=== PATIENT | female | born 1970 | race Two or more races ===

== ENCOUNTER 2024-04-21 19:05 | Emergency (ER) | payer MEDICAID, SELFPAY ==
[2024-04-21 19:20] VITALS: BMI 37.8
[2024-04-21 19:22] VITALS: BP 130/80; PULSE 73; RESP 19; TEMP 36.8; O2SAT 96
[2024-04-21 19:44] VITALS: PULSE 85; RESP 18; O2SAT 97
[2024-04-21 19:51] VITALS: BMI 37.8
--- NOTE | 2024-04-21 20:02 | EDNOTE_ITS ---
ED Seizures RME/HPI General Chief Complaint: Seizure Stated Complaint: SEIZURES Time Seen by Provider: 04/21/24 19:54 Arrival date/time: 04/21/24 19:05 RME / HPI RME / HPI Narrative: 54-year-old female patient with significant history of seizure disorder, currently taking Carbatrol, Vimpat, and Keppra was brought in by EMS for evaluation regarding seizure. Patient was in a dollar store, and developed sudden onset of tonic-clonic seizure, witnessed by her mom. Lasting for few seconds. Patient currently is alert and oriented x 3, denies any headache denies any neck pain denies any injury to the head. Patient is telling me that she is taking her seizure medication with good compliance. She also have VMS to control her seizure. Related Data Home Medications ?Medication ?Instructions ?Recorded ?Confirmed CARBATROL 200 mg PO BID ##0 11/21/08 1 lacosamide 200 mg tablet (Vimpat) 200 mg PO BID #0 tab s 11/27/16 01/02/22 levetiracetam 250 mg tablet 250 mg PO QID #0 tabs 11/0901/02/22 (Keppra) Previous Rx's ?Medication ?Instructions ?Recorded ibuprofen 800 mg tablet 800 mg PO TID PRN pain #30 t abs 07/05/23 Allergies Allergy/AdvReac Type Severity Reaction Status Date / Time NKA* Allergy Uncoded 01/07/22 16:36 Review of Systems Review of Systems Narrative Review of Systems: Review of system reviewed and within normal limits except mentioned in HPI ED Exam Narrative Physical exam: VITAL SIGNS: Reviewed. GENERAL APPEARANCE: Alert and interactive, follows commands, no acute distress, HEAD AND FACE: Non-traumatic. ENT: PERRL, pink conjunctivitis, eyelid no trauma, Mucous membrane moist. NECK: Supple, nontender, no nuchal rigidity. CHEST: No tenderness, no crepitus, no paradoxical movement, no retractions. LUNGS: Clear, well ventilated, symmetric, no rales, no wheezing, no ronchi, no stridor, good breath sounds bilaterally. HEART: Regular rate, regular rhythm, no murmur, no gallops. ABDOMEN: Soft, positive bowel sounds, nondistended, no guarding, nontender, no rebound, no masses, RECTAL: Deferred. GENITAL: Deferred. NEUROLOGICAL: Gross motor function intact sensory function intact, Appropriate for age. MUSCULOSKELETAL: low back nontender, full range of motion. EXTREMITIES: Nontender, full range of motion. SKIN: Color pink, dry, no rash, no lacerations, no abrasions, no contusions. LYMPHATICS: Deferred. Course Quality Measures none Orders Category Date Time Status CBC [CBC] Stat Lab 04/21/24 20:05 Completed CMP [Comprehensive Metabolic Panel] Stat Lab 04/21/24 20:05 Completed UA, C/S IF [Urinalysis, C/S if Indicated] Stat Lab 04/21/24 20:05 Completed levETIRAcetam INJ [Keppra Inj] Med 04/21/24 20:01 Discontinued 1,000 mg IVP X1 ONE Vital Signs Vital signs: Vital Signs Temperature 98.2 F 04/21/24 19:22 Pulse Rate 73 04/21/24 19:22 Respiratory Rate 19 04/21/24 19:22 Blood Pressure 130/80 04/21/24 19:22 Pulse Oximetry (%) 96 04/21/24 19:22 Oxygen Delivery Method Room Air 04/21/24 19:22 Seizure MDM Narrative MDM Narrative:: 54-year-old female patient with significant history of seizure disorder, currently taking Carbatrol, Vimpat, and Keppra was brought in by EMS for evalua tion regarding seizure. Patient was in a dollar store, and developed sudden onset of tonic-clonic seizure, witnessed by her mom. Lasting for few seconds. Patient currently is alert and oriented x 3, denies any headache denies any neck pain denies any injury to the head. Patient is telling me that she is taking her seizure medication with good compliance. She also have VMS to control her seizure. Patient's workup today all came back unremarkable. No recurrence of seizure noted in the emergency room. Patient received Keppra 1 g IV loading dose Patient appears nontoxic and hemodynamically stable. Patient discharged home and instructed to follow-up with primary care provider in 24 to 48 hours. Instructed to return to the emergency department immediately if worsening of symptoms Patient data External records reviewed:: None Clinical information provided by:: none Social determinants that could affect healthcare access:: none Patient has the following chronic illnesses:: History of seizure disorder How is presenting disease/condition affected by chronic disease/condition?: exacerbated by Evaluation data The following diagnostics were reviewed and interpreted by me:: lab results Lab and/or radiology exams considered but not ordered:: None Interpretation Summary: See result in [facility] Medications / Prescriptions Medications or Prescriptions considered but not ordered:: None Medication administrations:: Medication Administration History Discontinued Medications Levetiracetam (Levetiracetam Inj 100 Mg/Ml Vial 5ml) 1,000 mg IVP X1 ONE Stop: 04/21/24 20:02 Last Admin: 04/21/24 20:24 Dose: 1,000 mg Documented By: JAYME Valdez IV Consultations Consultation(s) initiated? (list below): No Diagnosis Seizure Differential Diagnosis: intractable seizure disorder, generalized seizure, new onset seizure, epileptic seizure and other Most likely diagnosis given after review of the tests above:: Breakthrough seizure Admission Indicated Admission indicated?: not indicated Explain why admission is indicated or not indicated:: Stable Admission Request Was there a request for admission?: No Disposition Plan Disposition Plan: Discharge Discharge Attestation Discharge Attestation: The patient and all family members were given an opportunity to ask questions and understood the discharge instructions. Discharge instructions specifically effects, indications for sooner follow up or return to the emergency department, and the expected course of current diagnosis. Patient condition: Stable Discharge Plan Plan Patient Disposition: HOME (Self Care) Disposition Comment: stable Prescriptions/Referrals Prescriptions/Med Rec: No Action CARBATROL 200 mg PO BID Qty: 0 levetiracetam [Keppra] 250 MG tablet 250 mg PO QID Qty: 0 lacosamide [Vimpat] 200 MG tablet 200 mg PO BID Qty: 0 ibuprofen 800 mg tablet 800 mg PO TID PRN (Reason: pain) Qty: 30 0RF Referrals: No Primary/Family,Physician [Primary Care Provider] - In 1 week Problem List Clinical Impression: Breakthrough seizure Patient/Caregiver Discharge Instructions Education Materials: ED Seizure, Recurrent (Adult) Additional Instructions: Thank you for the opportunity for serving you today. You are stable for discharged . You are advised to: Follow-up with your PCP in 1 to 2 days Return to ED for worsening of symptoms Increase oral fluids Take medication as prescribed by your PCP Print Language: Persian Stand Alone Forms: Marisela Award Info., Patient Portal Info Letter PA/PALMA Supervising Physician JOSE FRANCISCO/PALMA Supervising Physician: MD Ching
[2024-04-21] MEDS: levETIRAcetam INJ 100 MG/ML VIAL 5ML 1000 MG IVP (20:24)
[2024-04-21 20:37] LABS: Collection Type, Urine Clean Catch; RBC,Urine 0 /hpf (0-3); WBC,Urine 0 /hpf (0-5)
[2024-04-21 20:41] LABS: Basophils % (Auto) 0 % (0-2.5); Eosinophils # (Auto) 0.1 Thou/mm3 (0.0-0.5); Eosinophils % (Auto) 2 % (0-10); Hematocrit 40.7 % (36.0-46.0); Hemoglobin 13.9 g/dL (12.0-16.0); Immature Granulocytes % (Auto) 0 % (0-0); Immature Granulocytes Auto 0.02 Thou/mm3 (0.00-0.00); Lymphocytes # (Auto) 1.5 Thou/mm3 (1.0-4.8); Lymphocytes % (Auto) 33 % (10-50); Mean Corpuscular HGB Conc 34.2 g/dl (31.0-37.0); Mean Corpuscular Hemoglobin 31.2 pg (25.0-35.0); Mean Corpuscular Volume 91 fL (80-100); Monocytes # (Auto) 0.4 Thou/mm3 (0.0-0.8); Monocytes % (Auto) 10 % (0-12); Neutrophils # (Auto) 2.5 Thou/mm3 (1.8-7.7); Neutrophils % (Auto) 55 % (37-80); Nucleated Red Blood Cell % 0 /100 WBC (0); Platelet Count 214 Thou/mm3 (140-440); Red Blood Count 4.46 Miln/mm3 (4.00-5.20); White Blood Count 4.5 Thou/mm3 (3.6-11.0)
[2024-04-21 20:51] LABS: Bacteria,Urine Rare; Bilirubin,Urine Negative (Negative); Blood,Urine Negative (Negative); Clarity,Urine Clear (Clear/Hazy); Color,Urine Lt-Yellow (Lt Yel-Yel); Culture Indicated,Urine Not Indicated; Glucose, Urine Negative (Negative); Ketones,Urine Negative (Negative); Leukocyte Esterase,Urine Negative (Negative); Nitrite,Urine Negative (Negative); PH,Urine 7.5 (5.0-7.0); Protein,Urine Negative (Neg - Trace); Specific Gravity,Urine 1.017 (1.001-1.035); Squamous Epithelial Cell,Urine 1 /hpf (0-5); Urobilinogen,Urine Negative mg/dL (0.0-1.0)
[2024-04-21 21:03] LABS: Alanine Aminotransferase 12 U/L (10-49); Albumin, Serum 4.6 gm/dL (3.5-5.0); Albumin/Globulin Ratio 1.5 (1.2-2.2); Alkaline Phosphatase 117 U/L (46-116); Anion Gap 5 (7-16); Aspartate Amino Transferase 23 U/L (0-34); BUN/Creatinine Ratio 11 Ratio (12-20); Bilirubin,Total 0.2 mg/dL (0.3-1.2); Blood Urea Nitrogen 9 mg/dL (9-23); Calcium 9.3 mg/dL (8.3-10.6); Calcium (Corrected) 9.3 mg/dL (8.5-10.1); Carbon Dioxide 27.8 mMol/L (20.0-31.0); Chloride 109 mMol/L (98-107); Creatinine (Component) 0.8 mg/dL (0.6-1.3); Estimated Creatinine Clearance 94.5 mL/min (>60); Globulin 3.1 gm/dL (2.3-3.5); Glucose 72 mg/dL (74-106); Osmolality,Calculated 280 (275-295); Potassium 4.1 mMol/L (3.4-5.1); Sodium 142 mMol/L (136-145); Total Protein 7.7 gm/dL (5.7-8.2); eGFR > 60 See Note
[2024-04-21 21:46] VITALS: BP 113/82; PULSE 72; RESP 18; RESP 26; TEMP 36.6; O2SAT 95; O2SAT 97
[2024-04-21 22:00] VITALS: BP 111/80; RESP 16; O2SAT 95
== END 2024-04-21 22:27 | disposition home or self-care (01) ==
PROVIDERS: Nurse Practitioner Family; Emergency Provider Emergency Medicine
DX: R56.9 Unspecified convulsions (principal)
CPT/HCPCS: 36415; 80053; 81001; 85025; 96374; 99284; J1953

== ENCOUNTER → 2024-06-15 | Outpatient (CLI) | payer MEDICAID, SELFPAY ==
--- NOTE | 2024-06-15 13:15 | XR_ITS ---
Examination: Screening digital mammography, bilateral Computer aided detection 3-D breast Tomosynthesis, bilateral Date and time of exam: 06/15/2024, 1:19 PM Comparisons: December 2017 through February 26 through Indications: Screening Technique: Nonmagnified MLO, CC views of the breasts to been obtained, reconstructed from 3-D Tomosynthesis images. R2 computer aided detection program utilized for evaluation of suspicious masses and/or abnormal calcifications. 3-D Tomosynthesis images obtained. Technologist: Findings: There are scattered areas of fibroglandular density. No evidence of abnormal masses or suspicious calcifications. Impression: BI-RADS category 1: Negative findings (within normal) Recommend 1 year follow-up mammogram
[2024-06-15 14:12] LABS: Basophils % (Auto) 0 % (0-2.5); Eosinophils % (Auto) 0 % (0-10); Hematocrit 38.7 % (36.0-46.0); Hemoglobin 13.2 g/dL (12.0-16.0); Immature Granulocytes % (Auto) 0 % (0-0); Immature Granulocytes Auto 0.03 Thou/mm3 (0.00-0.00); Lymphocytes # (Auto) 1.2 Thou/mm3 (1.0-4.8); Lymphocytes % (Auto) 13 % (10-50); Mean Corpuscular HGB Conc 34.1 g/dl (31.0-37.0); Mean Corpuscular Hemoglobin 31.4 pg (25.0-35.0); Mean Corpuscular Volume 92 fL (80-100); Monocytes # (Auto) 0.8 Thou/mm3 (0.0-0.8); Monocytes % (Auto) 9 % (0-12); Neutrophils # (Auto) 7.1 Thou/mm3 (1.8-7.7); Neutrophils % (Auto) 78 % (37-80); Nucleated Red Blood Cell % 0 /100 WBC (0); Platelet Count 226 Thou/mm3 (140-440); RDW Standard Deviation 41.6 fL (36.4-46.3); White Blood Count 9.1 Thou/mm3 (3.6-11.0)
[2024-06-15 14:23] LABS: Glucose Estimated Average 100 mg/dL (80-131); Hemoglobin A1C 5.1 % Hgb (4.8-6.0)
[2024-06-15 14:32] LABS: Alanine Aminotransferase 11 U/L (10-49); Albumin, Serum 4.4 gm/dL (3.5-5.0); Albumin/Globulin Ratio 1.3 (1.2-2.2); Alkaline Phosphatase 110 U/L (46-116); Anion Gap 4 (7-16); Aspartate Amino Transferase 15 U/L (0-34); BUN/Creatinine Ratio 13 Ratio (12-20); Bilirubin,Total 0.5 mg/dL (0.3-1.2); Blood Urea Nitrogen 9 mg/dL (9-23); Calcium 9.2 mg/dL (8.3-10.6); Calcium (Corrected) 9.2 mg/dL (8.5-10.1); Carbon Dioxide 29.8 mMol/L (20.0-31.0); Cardiac Risk Estimate 2.3 RATIO (3.7-5.6); Chloride 101 mMol/L (98-107); Cholesterol 183 mg/dL (132-200); Creatinine (Component) 0.7 mg/dL (0.6-1.3); Globulin 3.4 gm/dL (2.3-3.5); Glucose 93 mg/dL (74-106); HDL Cholesterol 80 mg/dL (40-60); LDL Cholesterol,Calculated 92 mg/dL (0-130); Osmolality,Calculated 268 (275-295); Potassium 4.4 mMol/L (3.4-5.1); Sodium 135 mMol/L (136-145); Thyroid Stimulating Hormone 0.71 uIU/mL (0.55-4.78); Total Protein 7.8 gm/dL (5.7-8.2); Triglycerides 57 mg/dL (30-150); eGFR > 60 See Note
[2024-06-15 15:06] LABS: Hepatitis C Ab (Source Pt) Non Reactive (Non React); Vitamin D 25 Hydroxy Total 12.4 ng/mL (7.3-40.2)
[2024-06-18 19:47] LABS: Hepatitis B Virus DNA* NOT DETECTED
[2024-06-21 06:40] LABS: HIV Ag/Ab, 4th Gen NON-REACTIVE; Hepatitis B DNA PCR NOT DETECTED Log IU/mL
== END | disposition home or self-care (01) ==
LOC: CDIM 13:05 → COPL 13:22
PROVIDERS: PCP Physician Assistant; Referring Provider Physician Assistant; Visit Provider Radiology Diagnostic Radiology
DX: Z12.31 Encounter for screening mammogram for malignant neoplasm of breast (principal); R92.8 Other abnormal and inconclusive findings on diagnostic imaging of breast; R92.313 Mammographic fatty tissue density, bilateral breasts; Z00.00 Encounter for general adult medical examination without abnormal findings; E66.9 Obesity, unspecified; I10 Essential (primary) hypertension; E11.59 Type 2 diabetes mellitus with other circulatory complications
CPT/HCPCS: 36415; 77063; 77067; 80053; 80061; 82306; 83036; 84443; 85025; 87389; 87517

== ENCOUNTER → 2024-10-11 | Outpatient (CLI) | payer MEDICAID, SELFPAY ==
--- NOTE | 2024-10-11 | XR_ITS ---
Examination: PA lateral chest 2 views TECHNIQUE: Upright PA lateral chest 2 views Date and time: October 11, 2024 1321 hours Comparison May 31, 2022 INDICATIONS: Congestion shortness of breath one month FINDINGS: Normal heart size. Lungs are clear. Transmitter wires overlie the left hemithorax and left neck Moderate osteopenia IMPRESSION: No active disease
== END | disposition home or self-care (01) ==
PROVIDERS: PCP Physician Assistant; Referring Provider Internal Medicine Critical Care Medicine; Visit Provider Internal Medicine Critical Care Medicine
DX: R09.89 Other specified symptoms and signs involving the circulatory and respiratory systems (principal); R06.02 Shortness of breath; G47.30 Sleep apnea, unspecified; G40.909 Epilepsy, unspecified, not intractable, without status epilepticus; E66.01 Morbid (severe) obesity due to excess calories; Z80.2 Family history of malignant neoplasm of other respiratory and intrathoracic organs
CPT/HCPCS: 71046

== ENCOUNTER 2024-11-15 14:16 | Emergency (ER) | payer MEDICAID, SELFPAY ==
--- NOTE | 2024-11-15 14:24 | EKG_ITS ---
[facility] Test Date: 2024-11-15 Pat Name: CALLY SANCHEZ Department: Room: - Gender: Female Alteration Specialist: : 1970 Requested By: Estrellita Vizcarra Order Number: [id number] Reading MD: Estrellita Vizcarra Measurements Intervals [place] Rate: 88 P: 48 [place]: 151 QRS: 16 QRSD: 102 T: 48 QT: 350 QTc: 424 Interpretive Statements SINUS RHYTHM No previous ECG available for comparison /store/S0/[id number]/ecg/[id number].pdf
--- NOTE | 2024-11-15 14:25 | XR_ITS ---
Examination: AP chest single view Technique one AP portable upright chest single view Date and time: November 15, 2024 1434 hours INDICATIONS: Seizure today. FINDINGS: No aspiration pneumonia. Normal heart size Poor inspiratory effort IMPRESSION: Poor inspiratory effort chest x-ray
--- NOTE | 2024-11-15 14:29 | XR_ITS ---
Examination: CT brain head without contrast. 2-D sagittal coronal reconstructions Date and time of exam:November 15, 2024 1455 hours INDICATIONS: Seizures today, patient fell with injury to the head CTDI: vol (mGy):54 DLP: (mGycm):1070 Technique: Multiple CT axial sections of the brain have been obtained, 5 mm slice thickness. Contrast has not been administered. 2-D sagittal, coronal reconstructions have been obtained Low dose protocols were performed. One or more of the following dose reduction techniques were used; automated exposure control, adjustment of the mA and/or KV according to patient size, use of iterative reconstruction technique. Findings: No significant ventricular enlargement. Intra-axial or extra-axial hemorrhage density is not seen. No mass effect or midline shift Basal cisterns are not remarkable. Fourth ventricle is midline. Cranial vault intact. Impression: Negative for acute hemorrhage, mass effect or midline shift
[2024-11-15] MEDS: levETIRAcetam INJ 100 MG/ML VIAL 5ML 1000 MG IVP (14:32)
[2024-11-15 14:36] VITALS: BP 177/105; PULSE 76; PULSE 92; RESP 22; TEMP 37.3; O2SAT 95; O2SAT 96; BMI 39.8
[2024-11-15 14:49] LABS: Base Excess, Venous -3 (-3-3); O2 Saturation, Venous 65 % (96-97); PCO2, Venous 56 mmHg (36-56); PO2, Venous 38 mmHg (15-58); pH, Venous 7.26 (7.33-7.66)
--- NOTE | 2024-11-15 14:49 | XR_ITS ---
Examination: CT cervical spine without contrast 2-D sagittal reconstructions 2-D coronal reconstructions 3-D reconstructions. Exam date and time:November 15, 2024 1455 hours, comparison July 05, 2023 CTDI:vol (mGy) 19.8 DLP: (mGycm) 376 INDICATIONS: Seizure today, patient fell with injury to the neck, neck pain Technique: Multiple 2 mm axial sections of the cervical spine have been obtained. The coronal and sagittal reconstructions have been obtained. 3-D reconstructions have been obtained. Low dose protocols were performed. One or more of the following dose reduction techniques were used; automated exposure control, adjustment of the mA and/or KV according to patient size, use of iterative reconstruction technique. Findings: Axial sections demonstrate intact base of the skull. C1 exhibit satisfactory relationship to the odontoid. No acute cervical vertebral body fracture seen. Alignment posterior spinous processes satisfactory. Impression: No acute cervical fracture.
[2024-11-15 14:51] LABS: Basophils # (Auto) 0.0 Thou/mm3 (0.0-0.2); Basophils % (Auto) 0 % (0-2.5); Eosinophils # (Auto) 0.0 Thou/mm3 (0.0-0.5); Eosinophils % (Auto) 1 % (0-10); Hematocrit 43.8 % (36.0-46.0); Hemoglobin 14.7 g/dL (12.0-16.0); Immature Granulocytes Auto 0.07 Thou/mm3 (0.00-0.00); Lymphocytes # (Auto) 2.9 Thou/mm3 (1.0-4.8); Lymphocytes % (Auto) 42 % (10-50); Mean Corpuscular HGB Conc 33.6 g/dl (31.0-37.0); Mean Corpuscular Hemoglobin 31.4 pg (25.0-35.0); Mean Corpuscular Volume 94 fL (80-100); Monocytes # (Auto) 0.7 Thou/mm3 (0.0-0.8); Monocytes % (Auto) 11 % (0-12); Neutrophils # (Auto) 3.1 Thou/mm3 (1.8-7.7); Neutrophils % (Auto) 45 % (37-80); Nucleated Red Blood Cell # 0.00 Thou/mm3 (0.00-0.00); Nucleated Red Blood Cell % 0 /100 WBC (0); Platelet Count 198 Thou/mm3 (140-440); RDW Standard Deviation 43.0 fL (36.4-46.3); Red Blood Count 4.68 Miln/mm3 (4.00-5.20); White Blood Count 6.9 Thou/mm3 (3.6-11.0)
[2024-11-15 14:59] LABS: Lactate (Lactic Acid) 5.7 mMol/L (0.4-2.0)
--- NOTE | 2024-11-15 15:06 | PD.EDSEIZ ---
ED Seizures RME/HPI General Chief Complaint: Seizure Stated Complaint: SEIZURE Time Seen by Provider: 11/15/24 14:20 Arrival date/time: 11/15/24 14:16 Mode of arrival: EMS RME / HPI RME / HPI Narrative: Ms Powell is a 54 year old female with PMH of seizures follows Dr. Drake on Keppra, lacosamide and carbamazepine ER who presented to [facility] emergency department on 11/15/2024 with a chief complaint of seizure episode. Patient missed last step preseizure aura fell down and hit her head and had a seizure episode witnessed by family. Patient during transport by EMS required 4 L nasal cannula oxygen otherwise no medications given en route to the ED. Patient also has a vagal nerve stimulator for management of seizures, she reports that she needs to get the battery replaced on the VNS and is following with a surgeon in [place]. Patient complains of headache currently 10/10 is postictal, did have an episode of postictal confusion in the ED. Patient denies any medical problems, follows PCP. Currently denies any oral trauma, nausea, vomiting chest pain, shortness of breath, abdominal pain and dysuria. Patient does report that she took her medications this morning. MD complaint: seizure Onset (ago): hour(s) Description of Episode: loss of consciousness, tonic-clonic movement and post-event confusion Witnessed: yes - by bystander (family) Trauma: Yes Seizure History: known seizure disorder Place: home Possible Precipitating Event: other (Suspicion of VNS malfunction) Associated symptoms: confusion and other (headache) Treatments prior to arrival: none Related Data Home Medications ?Medication ?Instructions ?Recorded ?Confirmed levetiracetam 500 mg tablet 1,250 mg PO Q12H 11/15/24 11/15/24 Previous Rx's ?Medication ?Instructions ?Recorded carbamazepine 300 mg 300 mg PO TID 30 days #90 caps 11/15/24 capsule,extended release [id number] lacosamide 150 mg tablet 150 mg PO BID Seizures 30 days #60 11/15/24 tabs Allergies Allergy/AdvReac Type Severity Reaction Status Date / Time No Known Allergies Allergy Unverified 11/15/24 14:54 Review of Systems Review of Systems Narrative Review of Systems: ROS: -CONSTITUTIONAL: Denies weight loss, fever and chills. -HEENT: Denies changes in vision and hearing. -RESPIRATORY: Denies SOB and cough. -CV: Denies palpitations and Chest Pain. -GI: Denies abdominal pain, nausea, vomiting,constipation and diarrhea. -: Denies dysuria and urinary frequency. -MSK: Denies myalgia and joint pain. -SKIN: Denies rash and pruritus. -NEUROLOGICAL: Positive for headache and denies syncope. -PSYCHIATRIC: Denies recent changes in mood. Denies anxiety and depression. Past Medical History Past Medical History Comments PMH COMMENT: PMH: Positive for seizure disorder, renal stones PSHx: Surgery for renal calculi, VNS insertion Allergies: No known allergies Social history: -Smoking: Denies -Alcohol Use: Denies -Illicit Drug Use: Denies Family History: No pertinent family history ED Exam Narrative Physical exam: Physical Exam General: Awake and in no acute distress. Conversational and non-toxic appearing. HEENT: Normocephalic, atraumatic, mucous membranes moist. Heart: Regular rate and rhythm, no murmurs. Lungs: Clear to auscultation with no wheezing or crackles. Abdomen: Soft, obese, nondistended, nontender, positive bowel sounds. ?No guarding or rebound tenderness. Neurologic: Alert and oriented x3, no gross neurological deficit, and patient able to move all 4 extremities. Extremities: No edema. Skin: No rash or ecchymoses. Course Quality Measures none Orders Category Date Time Status Blood glucose [Bedside Blood Glucose] NOW Care 11/15/24 14:28 Completed Director Of Instruction Q4H START 00 Care 11/15/24 14:28 Completed Continuous Pulse Oximetry NOW Care 11/15/24 14:28 Completed EKG (ED ONLY) *Do not use* NOW Care 11/15/24 14:25 Completed In and Out Catheter X1 Care 11/15/24 15:44 Completed Seizure precautions NOW Care 11/15/24 14:[address] cervical spine wo con Stat Exams 11/15/24 14:[address] head/brain wo con Stat Exams 11/15/24 14:29 Completed CXRP [XR chest 1V portable] Stat Exams 11/15/24 14:25 Completed EKG (ED Only) Stat Exams 11/15/24 14:24 Draft Alcohol, Blood Medical Stat Lab 11/15/24 14:44 Completed CBC Stat Lab 11/15/24 14:44 Completed CK [Creatine Kinase] Stat Lab 11/15/24 14:44 Completed CMP [Comprehensive Metabolic Panel] Stat Lab 11/15/24 14:44 Completed Drug Screen,Urine Stat Lab 11/15/24 16:16 Completed HCG Qualitative,Urine Stat Lab 11/15/24 16:16 Completed INR [Prothrombin Time with INR] Stat Lab 11/15/24 14:44 Completed Lactate (Lactic Acid) Stat Lab 11/15/24 14:44 Completed Magnesium Stat Lab 11/15/24 14:44 Completed PTT [Partial Thromboplastin Time] Stat Lab 11/15/24 14:44 Completed Phosphorous Stat Lab 11/15/24 14:44 Completed Procalcitonin Stat Lab 11/15/24 14:44 Completed Urinalysis Stat Lab 11/15/24 16:16 Completed VBG [Venous Blood Gas] Stat Lab 11/15/24 14:44 Completed Acetaminophen Tab [Tylenol ES Tab] Med 11/15/24 14:51 Discontinued 500 mg PO X1 ONE Ringers Lactated 1000 ml [Lactated Ringers] 1,000 ml Med 11/15/24 15:17 Discontinued IV 999 mls/hr Sodium Chloride 0.9% 500 ml [Ns] 500 ml Med 11/15/24 14:51 Discontinued IV 999 mls/hr carBAMazepine [TEGretol Xr] Med 11/15/24 15:15 Discontinued 300 mg PO Q8HR levETIRAcetam INJ [Keppra Inj] Med 11/15/24 14:26 Discontinued 1,000 mg IVP X1 ONE levETIRAcetam INJ [Keppra Inj] Med 11/15/24 14:58 Discontinued 500 mg IVP X1 ONE Vital Signs Vital signs: Vital Signs Temperature 99.1 F 11/15/24 14:36 Pulse Rate 92 11/15/24 14:36 Respiratory Rate 22 H 11/15/24 14:36 Blood Pressure 177/105 H 11/15/24 14:36 Pulse Oximetry (%) 95 11/15/24 14:36 Oxygen Delivery Method Room Air 11/15/24 14:36 PROCEDURES: Laceration Laceration 1: Site: scalp Description: linear and irregular Depth: simple, single layer Skin layer closed with: other (neil) Number of sutures: 6 Seizure MDM Narrative MDM Narrative:: #Seizure Episode #H/O Seizures #S/P Fall #Scalp Laceration s/p 6 neil Patient presented with Seizure episode, s/p fall Given Keppra 1500 mg IV and home dose of carbamazepine. Lactate 5.7 2/2 seizure, given [address] Head and Cervical Spine negative Discussed with Dr Lewis patient's neurologist over the phone will be discharged on Keppra 1250mg Q12H, Carbamazepine ER 300 TID and Lacosamide dose will be increased to 150mg BID. Patient to follow up with Dr Drake in 1 week for VNS assessment Follow up in 1 week to remove neil Case discussed with Attending Physician Dr. Denton Vizcarra MD Internal Medicine PGY-2 Disclaimer: This note was dictated by speech recognition. Minor errors in art class model may be present due to voice recognition software. Patient data External records reviewed:: [facility] previous records and EMS form Clinical information provided by:: patient and EMS Social determinants that could affect healthcare access:: none Patient has the following chronic illnesses:: Seizure disorder How is presenting disease/condition affected by chronic disease/condition?: exacerbated by Evaluation data The following diagnostics were reviewed and interpreted by me:: lab results, radiology exam(s) and EKG tracing(s) Lab and/or radiology exams considered but not ordered:: None Interpretation Summary: EKG shows sinus rhythm, no acute ST-T changes Chest x-ray negative for any aspiration pneumonia, CT scan of the head negative for any acute hemorrhage mass effect or midline shift, CT cervical spine negative for any acute cervical fracture VBG pertinent for pH 7.26, lactate elevated at 5.7 Medications / Prescriptions Medications or Prescriptions considered but not ordered:: Not applicable Medication administrations:: Medication Administration History Discontinued Medications Acetaminophen (Acetaminophen 500 Mg Tablet) 500 mg PO X1 ONE Stop: 11/15/24 14:52 Last Admin: 11/15/24 15:24 Dose: 500 mg Documented By: EF Carbamazepine (Carbamazepine 200 Mg Tabcr (Non-Formulary)) 300 mg PO Q8HR CECE Stop: 12/15/24 15:14 Last Admin: 11/15/24 16:33 Dose: 300 mg Documented By: EF Sodium Chloride (Ns) 500 mls @ 999 mls/hr IV .Q31M ONE Stop: 11/15/24 15:21 Last Admin: 11/15/24 16:06 Dose: Not Given Documented By: EF Non-Admin Reason: Cancelled by Provider Lactated Ringer's (Lactated Ringers) 1,000 mls @ 999 mls/hr IV .Q1H1M ONE Stop: 11/15/24 16:17 Last Infusion: 11/15/24 16:28 Dose: Infused Documented By: Admin: 11/15/24 15:27 Dose: 999 mls/hr Documented By: EF Levetiracetam (Levetiracetam Inj 100 Mg/Ml Vial 5ml) 1,000 mg IVP X1 ONE Stop: 11/15/24 14:27 Last Admin: 11/15/24 14:32 Dose: 1,000 mg Documented By: EF Levetiracetam (Levetiracetam Inj 100 Mg/Ml Vial 5ml) 500 mg IVP X1 ONE Stop: 11/15/24 14:59 Last Admin: 11/15/24 15:24 Dose: 500 mg Documented By: EF As above Consultations Consultation(s) initiated? (list below): Yes Consultation #1 (Physician, Specialty, Details): Dr Drake, Neurology, Phone Consult, recs discharge on Keppra 1250mg Q12H, Carbamazepine ER 300 TID and Lacosamide dose will be increasing to 150mg BID. Diagnosis Seizure Differential Diagnosis: generalized seizure Most likely diagnosis given after review of the tests above:: Seizure episode Admission Indicated Admission indicated?: not indicated Admission Request Was there a request for admission?: No Disposition Plan Disposition Plan: Discharge Discharge Attestation Discharge Attestation: The patient and all family members were given an opportunity to ask questions and understood the discharge instructions. Discharge instructions specifically effects, indications for sooner follow up or return to the emergency department, and the expected course of current diagnosis. Patient condition: Stable Discharge Plan Plan Patient Disposition: HOME (Self Care) Patient condition on transfer: Stable Health Concerns: We have increased your lacosamide dose after discussing with your neurologist to 150mg twice a day, 12 hours apart, first dose at 8 AM second dose at 8 PM Take Keppra 1250mg (2.5 tablets) 12 hours apart, first dose at 8 AM second dose at 8 PM Take Carbamazepine 300 mg three times a day first dose 6 AM, second dose 2 PM and third dose at 10 PM Follow up with neurologist outpatient for the VNS issues We placed 6 neil in your scalp because of the laceration, please follow up with PCP in 1 week to get them removed. Follow up with PCP in 1 week Return to ED if symptoms worsen Prescriptions/Referrals Prescriptions/Med Rec: New lacosamide 150 mg tablet 150 mg PO BID 30 Days Qty: 60 0RF Continued levetiracetam 500 mg tablet 1,250 mg PO Q12H Patient Comments: TAKE 2.5 TABLETS BY MOUTH 2 TIMES A DAY Changed carbamazepine 300 mg capsule, ER multiphase 12 hr 300 mg PO TID 30 Days Qty: 90 0RF Patient Comments: TAKE 1 CAPSULE BY MOUTH EVERY 8 HOURS FOR SEIZURES Discontinued CARBATROL 200 mg PO BID Qty: 0 levetiracetam [Keppra] 250 MG tablet 250 mg PO QID Qty: 0 lacosamide [Vimpat] 200 MG tablet 200 mg PO BID Qty: 0 ibuprofen 800 mg tablet 800 mg PO TID PRN (Reason: pain) Qty: 30 0RF lacosamide 100 mg tablet 100 mg PO Q12H Patient Comments: TAKE 1 TABLET BY MOUTH TWICE A DAY Referrals: Niles Drake MD [Physician, Neurology] - In 1 week Monica Santana PA-C [Primary Care Provider, Family Practice] - In 1 week Problem List Clinical Impression: Generalized seizure Patient/Caregiver Discharge Instructions Discharge Activity: activity as tolerated Education Materials: ED Seizure, Recurrent (Adult) Print Language: Syriac Stand Alone Forms: Marisela Award Info., Patient Portal Info Letter MD Attestation Attestation I, Dr. Chawla, have reviewed the history, exam, and assessment of the patient. I have evaluated the patient independently and agree with the plan of care documented by Dr. Vizcarra. All diagnostic studies were reviewed and discussed. I confirm the diagnosis as documented by the Resident. I was present during the Medical Decision Making for this patient. The patient's plan of care was created between myself and the Resident and consistent with our discussion of the patient's case.
[2024-11-15] MEDS: ACETAMINOPHEN 500 MG TABLET PO (15:24)
[2024-11-15] MEDS: levETIRAcetam INJ 100 MG/ML VIAL 5ML 500 MG IVP (15:24)
[2024-11-15] MEDS: RINGERS LACTATED 1000 ML 1,000 ML 999 ML IV (15:27)
[2024-11-15 15:31] LABS: Alanine Aminotransferase 13 U/L (10-49); Albumin, Serum 4.6 gm/dL (3.5-5.0); Albumin/Globulin Ratio 1.4 (1.2-2.2); Alcohol, Blood Medical < 3.0 mg/dL (0-10.0); Alkaline Phosphatase 106 U/L (46-116); Anion Gap 14 (7-16); Aspartate Amino Transferase 24 U/L (0-34); BUN/Creatinine Ratio 15 Ratio (12-20); Bilirubin,Total 0.3 mg/dL (0.3-1.2); Blood Urea Nitrogen 12 mg/dL (9-23); Calcium 9.5 mg/dL (8.3-10.6); Calcium (Corrected) 9.5 mg/dL (8.5-10.1); Carbon Dioxide 23.8 mMol/L (20.0-31.0); Chloride 104 mMol/L (98-107); Creatine Kinase 98 U/L (34-171); Creatinine (Component) 0.8 mg/dL (0.6-1.3); Estimated Creatinine Clearance 97.3 mL/min (>60); Globulin 3.3 gm/dL (2.3-3.5); Glucose 100 mg/dL (74-106); Magnesium 2.2 mg/dL (1.6-2.6); Osmolality,Calculated 282 (275-295); Phosphorous 3.3 mg/dL (2.4-5.1); Potassium 3.6 mMol/L (3.4-5.1); Procalcitonin < 0.04 ng/ml (0.0-0.49); Sodium 142 mMol/L (136-145); Total Protein 7.9 gm/dL (5.7-8.2); eGFR > 60 See Note
[2024-11-15 15:37] LABS: INR 1.0 (0.9-1.3); Partial Thromboplastin Time 25.4 Seconds (22.0-36.0); Prothrombin Time 10.6 Seconds (9.0-12.2)
[2024-11-15 16:17] VITALS: BP 138/92; PULSE 63; RESP 18; TEMP 36.6; O2SAT 95
[2024-11-15] MEDS: CARBAMAZEPINE 200 MG 300 MG PO (16:33)
[2024-11-15 16:45] LABS: Collection Type, Urine Clean Catch
[2024-11-15 17:06] LABS: Bilirubin,Urine Negative (Negative); Blood,Urine 2+ (Negative); Color,Urine Lt-Yellow (Lt Yel-Yel); Glucose, Urine Negative (Negative); Ketones,Urine Negative (Negative); Leukocyte Esterase,Urine Negative (Negative); Nitrite,Urine Negative (Negative); PH,Urine 7.0 (5.0-7.0); Protein,Urine Trace (Neg - Trace); RBC,Urine 119 /hpf (0-3); Specific Gravity,Urine 1.020 (1.001-1.035); Squamous Epithelial Cell,Urine 1 /hpf (0-5); Urobilinogen,Urine Negative mg/dL (0.0-1.0); WBC,Urine 1 /hpf (0-5)
[2024-11-15 17:12] LABS: Clarity,Urine Hazy (Clear/Hazy)
[2024-11-15 17:31] LABS: HCG Qualitative,Urine Negative
[2024-11-15 17:44] LABS: Amphetamine/Methamp Scrn,U Negative (Negative); Barbiturate Screen,Urine Negative (Negative); Benzodiazepines Screen,Urine Negative (Negative); Benzoylecgonine Screen, Ur Negative (Negative); Fentanyl Screen,Urine Negative (Negative); Opiate Screen,Urine Negative (Negative); THC Screen,Urine Negative (Negative)
[2024-11-15 17:49] LABS: Reflex Lactate? Y
== END 2024-11-15 17:12 | disposition home or self-care (01) ==
PROVIDERS: Emergency Provider Emergency Medicine; PCP Physician Assistant
DX: S01.01XA Laceration without foreign body of scalp, initial encounter (principal); R56.9 Unspecified convulsions; S19.9XXA Unspecified injury of neck, initial encounter; W19.XXXA Unspecified fall, initial encounter
CPT/HCPCS: 12001; 36415; 70450; 71045; 72125; 80053; 80307; 80320; 81001; 81025; 82550; 82803; 83605; 83735; 84100; 84145; 85025; 85610; 85730; 93005; 96361; 96374; 96376; 99284; J1953; J7120; A9270; G0480

== ENCOUNTER → 2024-12-14 | Outpatient (CLI) | payer MEDICAID, SELFPAY ==
--- NOTE | 2024-12-14 09:55 | XR_ITS ---
EXAMINATION: PA lateral chest 2 views TECHNIQUE: Upright PA lateral chest 2 views Date and time: December 14, 2024, 1019 hours INDICATIONS: Difficulty breathing 1 month. FINDINGS: Normal heart size Lungs are clear. Pulse generator over the left chest Mild osteopenia IMPRESSION: No active disease
== END | disposition home or self-care (01) ==
PROVIDERS: PCP Physician Assistant; Referring Provider Nurse Practitioner; Visit Provider Nurse Practitioner
DX: G47.30 Sleep apnea, unspecified (principal); Z80.2 Family history of malignant neoplasm of other respiratory and intrathoracic organs
CPT/HCPCS: 71046

== ENCOUNTER 2025-01-11 16:43 | Inpatient (IN) | payer MEDICAID, SELFPAY ==
[2025-01-11 16:49] VITALS: PULSE 84; O2SAT 94; BMI 43.6
--- NOTE | 2025-01-11 16:50 | XR_ITS ---
CLINICAL INDICATION: r/o aspiration pneumonia Exam date and time: 01/11/2025, 4:58 p.m. TECHNIQUE: XR chest 1V portable COMPARISON: Chest radiographs 12/14/2024 FINDINGS: The cardiomediastinal silhouette is within normal limits. No airspace opacities suggestive of pneumonia. No mass detected. No pleural effusion or pneumothorax. No acute osseous abnormality detected. Redemonstration of thoracic dextroscoliosis, as well as a vagal nerve stimulator on the left. IMPRESSION: No radiographic evidence for acute cardiopulmonary abnormality. No significant interval change since the comparison study. - This report was generated utilizing speech recognition software. -
--- NOTE | 2025-01-11 16:51 | EKG_ITS ---
[facility] Test Date: 2025-01-11 Pat Name: CALLY SANCHEZ Department: Room: - Gender: Female Service Engineer: : 1970 Requested By: Leilani Solomon Order Number: [id number] Reading MD: Leilani Solomon Measurements Intervals [place] Rate: 75 P: 32 W[place]: 150 QRS: 12 QRSD: 85 T: 25 QT: 351 QTc: 393 Interpretive Statements SINUS RHYTHM Compared to ECG 11/15/2024 14:30:33 No significant changes /store/S0/[id number].pdf
[2025-01-11 16:54] VITALS: PULSE 66
[2025-01-11 17:00] VITALS: BP 134/86; PULSE 76; RESP 18; TEMP 36.4; O2SAT 98
--- NOTE | 2025-01-11 17:14 | XR_ITS ---
Examination: CT brain head without contrast. 2-D sagittal coronal reconstructions Date and time of exam: January 11, 2025, 1812 hours INDICATIONS: Seizures today CTDI: vol (mGy): 51.4 DLP: (mGycm): 1108 Technique: Multiple CT axial sections of the brain have been obtained, 5 mm slice thickness. Contrast has not been administered. 2-D sagittal, coronal reconstructions have been obtained Low dose protocols were performed. One or more of the following dose reduction techniques were used; automated exposure control, adjustment of the mA and/or KV according to patient size, use of iterative reconstruction technique. Findings: No significant ventricular enlargement. Intra-axial or extra-axial hemorrhage density is not seen. No mass effect or midline shift Basal cisterns are not remarkable. Fourth ventricle is midline. Cranial vault intact. Impression: Negative for acute hemorrhage, mass effect or midline shift
[2025-01-11 17:36] LABS: Base Excess, Venous -1 (-3-3); O2 Saturation, Venous 96 % (96-97); PCO2, Venous 47 mmHg (36-56); PO2, Venous 85 mmHg (15-58); pH, Venous 7.34 (7.33-7.66)
[2025-01-11 17:37] LABS: Lactate (Lactic Acid) 2.8 mMol/L (0.4-2.0)
[2025-01-11 17:39] LABS: Basophils # (Auto) 0.0 Thou/mm3 (0.0-0.2); Basophils % (Auto) 1 % (0-2.5); Eosinophils # (Auto) 0.0 Thou/mm3 (0.0-0.5); Eosinophils % (Auto) 0 % (0-10); Hematocrit 41.0 % (36.0-46.0); Hemoglobin 14.1 g/dL (12.0-16.0); Immature Granulocytes Auto 0.03 Thou/mm3 (0.00-0.00); Lymphocytes # (Auto) 1.8 Thou/mm3 (1.0-4.8); Lymphocytes % (Auto) 23 % (10-50); Mean Corpuscular HGB Conc 34.4 g/dl (31.0-37.0); Mean Corpuscular Hemoglobin 31.8 pg (25.0-35.0); Mean Corpuscular Volume 93 fL (80-100); Monocytes # (Auto) 0.5 Thou/mm3 (0.0-0.8); Monocytes % (Auto) 7 % (0-12); Neutrophils # (Auto) 5.4 Thou/mm3 (1.8-7.7); Neutrophils % (Auto) 70 % (37-80); Nucleated Red Blood Cell # 0.00 Thou/mm3 (0.00-0.00); Nucleated Red Blood Cell % 0 /100 WBC (0); Platelet Count 210 Thou/mm3 (140-440); RDW Standard Deviation 42.6 fL (36.4-46.3); Red Blood Count 4.43 Miln/mm3 (4.00-5.20); White Blood Count 7.8 Thou/mm3 (3.6-11.0)
[2025-01-11] MEDS: levETIRAcetam INJ 100 MG/ML VIAL 5ML 1000 MG IVP (17:40)
--- NOTE | 2025-01-11 17:48 | EDNOTE_ITS ---
<Statement entered by Valerie Britton MD - 01/12/25 09:34> As co-signing physician, I was present and available for consult prn. I concur with the plan and care as documented by the midlevel provider. ED Seizures RME/HPI General Chief Complaint: Seizure Stated Complaint: SEIZURES Time Seen by Provider: 01/11/25 16:47 Arrival date/time: 01/11/25 16:43 RME / HPI RME / HPI Narrative: Patient is a 54-year-old female with a past medical history of seizures who presented to the emergency room via ambulance with a chief complaint of 6 seizures witnessed at home. Patient's mother states that patient began to c lench her jaw, bilateral jerking movements, apneic episodes and 3 to 4 minutes of confusion. Family denied tongue biting and denied urinary incontinence. Family has been unable to refill carbamazepine for at least 2 weeks. Concern for medication noncompliance as primary caregiver mother, was unsure of dosage of medications. Patient has an implantable neurostimulator please do not do it MRI if neurostimulator is on. Neuro, Dr. Drake, given patient's poor medication compliance. EEG ordered Related Data Home Medications ?Medication ?Instructions ?Recorded ?Confirmed levetiracetam 500 mg tablet 1,250 mg PO Q12H 11/15/24 11/15/24 Previous Rx's ?Medication ?Instructions ?Recorded carbamazepine 300 mg 300 mg PO TID 30 days #90 ca ps 11/15/24 capsule,extended release [id number] Allergies Allergy/AdvReac Type Severity Reaction Status Date / Time No Known Allergies Allergy Verified 01/11/25 17:04 Review of Systems Review of Systems Narrative Review of Systems: General appearance: NO weight change, YES fatigue, NO weakness, NO fever, NO chills, NO night sweats, No cough Skin: NO rash, NO itching, NO sores, NO moles HEENT: NO Trauma, NO nausea, NO vomiting, NO visual changes, NO blurry vision, NO double vision, NO tinnitus, NO vertigo, NO ear discharge, NO rhinorrhea, NO stuffiness, NO sneezing, NO allergy, NO epistaxis. NO Hoarseness, NO sore throat, NO swollen neck. Cardiac: NO Palpitations, NO dyspnea on exertion, NO orthopnea, NO paroxysmal nocturnal dyspnea, NO edema Respiratory: NO Shortness of Breath, NO Wheezing, NO Cough, NO Sputum, NO hemoptysis GI:NO appetite, NO nausea, NO vomiting, NO dysphagia, NO changes in bowel frequency, NO stool color, NO diarrhea, NO constipation, NO hemetemesis, NO hemorrhoids, NO melena, NO hematechezia, NO abdominal pain, NO jaundice Renal: NO frequency, NO hesitancy, NO urgency, NO hematuria, NO nocturia, NO incontinence MSK: NO muscle weakness, NO gout, NO arthritis, NO muscle stiffness Neuro: NO headaches, NO tremors, NO weakness, NO paralysis, YES seizures, NO loss of consciousness, NO numbness. Hem: NO anemia, NO easy bruising/bleeding, NO petechiae, NO purpura Endo: NO heat/cold intolerance, NO excessive sweating, NO polyuria, NO polydipsia, NO polyphagia, NO thyroid problems, NO diabetes Pysch: NO mood, NO anxiety, NO depression ED Exam Narrative Physical exam: General Appearance: Alert & Oriented X2, well-nourished female who is lying in bed in no acute distress HEENT: Skull symmetrical and atraumatic. Conjunctivae pin and moist. Pupils equal, round, reactive to light and accommodation (PERRL). External ear without lesion or discharge. Straight, nares patient, mucosa pink, no discharge. Cardio: Normal Rate and Rhythm with S1 and S2 heart sounds. No murmurs or extra heart sounds auscultated. No bruits on carotid auscultation. No peripheral edema or cyanosis. Lungs: Symmetric with good expansion. Chest and back non-tender. Breath sounds vesicular without crackles, wheezing or rhonchi Abdomen: Non-tender, Non-distended, Normal Reactive Bowel Sounds Neuro: Alert, cooperative, oriented to person, place, and time. Speech clear. CN grossly intact. Upper motor strength 5/5 and Lower motor strength 5/5. Sensation intact. Course Quality Measures none Orders Category Date Time Status Bedside Blood Glucose NOW Care 01/11/25 16:49 Active Bladder Scan NEEDED Care 01/11/25 16:56 Active Cargo Broker Q4H START 00 Care 01/11/25 16:54 Active Continuous Pulse Oximetry NOW Care 01/11/25 16:54 Completed Head of Bed Elevation NOW Care 01/11/25 16:51 Active Seizure precautions NOW Care 01/11/25 16:51 Active Consult to Neurology / Tele-Neurology Stat Cons 01/11/25 17:[address] head/brain wo con Stat Exams 01/11/25 17:14 Completed XR chest 1V portable Stat Exams 01/11/25 16:50 Completed CBC Stat Lab 01/11/25 17:05 Completed CMP [Comprehensive Metabolic Panel] Stat Lab 01/11/25 17:05 Completed Creatine Kinase Stat Lab 01/11/25 17:05 Completed HCG,Qualitative Serum Stat Lab 01/11/25 17:05 Completed Lactic Acid [Lactate (Lactic Acid)] Stat Lab 01/11/25 17:05 Results Mag [Magnesium] Stat Lab 01/11/25 17:05 Completed Phosphorous Stat Lab 01/11/25 17:05 Completed Procalcitonin Stat Lab 01/11/25 17:05 Completed Urinalysis, C/S if Indicated Stat Lab 01/11/25 17:49 Completed VBG [Venous Blood Gas] Stat Lab 01/11/25 17:05 Completed levETIRAcetam INJ [Keppra Inj] Med 01/11/25 17:14 Discontinued 1,000 mg IVP X1 ONE EEG Awake and Drowsy Routine RT 01/11/25 18:00 Ordered EKG (RT) Stat RT 01/11/25 16:51 Draft Vital Signs Vital signs: Vital Signs Pulse Rate 66 01/11/25 16:54 Seizure Patient data External records reviewed:: [facility] previous records Clinical information provided by:: patient and family Social determinants that could affect healthcare access:: none Patient has the following chronic illnesses:: Seizure How is presenting disease/condition affected by chronic disease/condition?: exacerbated by (history of seizures) Evaluation data The following diagnostics were reviewed and interpreted by me:: lab results and EKG tracing(s) Lab and/or radiology exams considered but not ordered:: none Interpretation Summary: Concern for seizures given elevated lactic and family description of seizure Medications / Prescriptions Medications or Prescriptions considered but not ordered:: none Medication administrations:: Medication Administration History Discontinued Medications Levetiracetam (Levetiracetam Inj 100 Mg/Ml Vial 5ml) 1,000 mg IVP X1 ONE Stop: 01/11/25 17:15 Last Admin: 01/11/25 17:40 Dose: 1,000 mg Documented By: JALYN same as above Consultations Consultation(s) initiated? (list below): Yes Consultation #1 (Physician, Specialty, Details): Dr. drake Time 6:00 PM Diagnosis Seizure Differential Diagnosis: intractable seizure disorder, generalized seizure and status epilepticus Most likely diagnosis given after review of the tests above:: concern for status epilepticus given history of 6 witness seizures at home - The patient's plan was discussed with attending Dr. Reba Solomon MD PGY2 Internal Medicine Admission Indicated Admission indicated?: indicated Admission Request Was there a request for admission?: Yes Admission Attestation Admission request attestation: Discussed case with Dr. Phan from Hospitalist service regarding admission. Discussed patients ED course, exam findings, labs, and radiology results. The Hospitalist agrees to accept the patient for admission. Disposition Plan Disposition Plan: Admit Discharge Plan Plan Patient Disposition: Admit Acute Care w/in Hospital Patient condition on transfer: Stable Prescriptions/Referrals Prescriptions/Med Rec: No Action levetiracetam 500 mg tablet 1,250 mg PO Q12H Patient Comments: TAKE 2.5 TABLETS BY MOUTH 2 TIMES A DAY carbamazepine 300 mg capsule, ER multiphase 12 hr 300 mg PO TID 30 Days Qty: 90 0RF Patient Comments: TAKE 1 CAPSULE BY MOUTH EVERY 8 HOURS FOR SEIZURES Referrals: Monica Santana PA-C [Primary Care Provider, Family Practice] - In 1 week Problem List Clinical Impression: Generalized-onset seizures, Epileptic seizure Patient/Caregiver Discharge Instructions Print Language: Kiswahili Stand Alone Forms: Marisela Award Info., Patient Portal Info Letter
[2025-01-11 17:55] LABS: HCG,Qualitative Serum Negative
[2025-01-11 17:56] LABS: Collection Type, Urine Clean Catch
[2025-01-11 18:05] LABS: Amorphous Crystals,Urine Present (Absent); Bilirubin,Urine Negative (Negative); Blood,Urine 1+ (Negative); Clarity,Urine Turbid (Clear/Hazy); Color,Urine Yellow (Lt Yel-Yel); Culture Indicated,Urine Not Indicated; Glucose, Urine Trace (Negative); Ketones,Urine Negative (Negative); Leukocyte Esterase,Urine Negative (Negative); Nitrite,Urine Negative (Negative); PH,Urine 6.5 (5.0-7.0); Protein,Urine 1+ (Neg - Trace); RBC,Urine 8 /hpf (0-3); Specific Gravity,Urine 1.032 (1.001-1.035); Squamous Epithelial Cell,Urine 1 /hpf (0-5); Urobilinogen,Urine Negative mg/dL (0.0-1.0); WBC,Urine 4 /hpf (0-5)
[2025-01-11 18:06] LABS: Alanine Aminotransferase 14 U/L (10-49); Albumin, Serum 4.8 gm/dL (3.5-5.0); Albumin/Globulin Ratio 1.7 (1.2-2.2); Alkaline Phosphatase 92 U/L (46-116); Anion Gap 11 (7-16); Aspartate Amino Transferase 20 U/L (0-34); BUN/Creatinine Ratio 14 Ratio (12-20); Bilirubin,Total 0.4 mg/dL (0.3-1.2); Blood Urea Nitrogen 11 mg/dL (9-23); Calcium 9.3 mg/dL (8.3-10.6); Calcium (Corrected) 9.3 mg/dL (8.5-10.1); Carbon Dioxide 24.9 mMol/L (20.0-31.0); Chloride 105 mMol/L (98-107); Creatine Kinase 103 U/L (34-171); Creatinine (Component) 0.8 mg/dL (0.6-1.3); Estimated Creatinine Clearance 102.5 mL/min (>60); Globulin 2.9 gm/dL (2.3-3.5); Glucose 139 mg/dL (74-106); Magnesium 2.2 mg/dL (1.6-2.6); Osmolality,Calculated 282 (275-295); Phosphorous 4.6 mg/dL (2.4-5.1); Potassium 3.8 mMol/L (3.4-5.1); Procalcitonin < 0.04 ng/ml (0.0-0.49); Sodium 141 mMol/L (136-145); Total Protein 7.7 gm/dL (5.7-8.2); eGFR > 60 See Note
--- NOTE | 2025-01-11 18:35 | PD.EDADDENDU ---
Emergency Room Addendum Addendum Narrative: 1800: Care assumed from Dr. Solomon, attending Dr. Britton. Past medical, surgical, social and family history reviewed. Vitals and home medications reviewed. Results and treatment plan discussed. I will assume the care of the patient at this time and will follow the patient. Please refer to the emergency department record for history and examination from initial visit. RADIOLOGY RESULTS: [facility] Report Signed Patient: CALLY SANCHEZ. Record#: [id number] Birthdate: 1970 Age/Sex: 54 / F Location: [facility] Attending Dr: Ordering Physician: Leilani Solomon MD Date of Service: 01/11/25 Procedure(s): CT head/brain wo con Accession Number(s): [id number] cc: Nghia Ramirez MD; Monica Santana PA-C; Leilani Solomon MD~ Examination: CT brain head without contrast. 2-D sagittal coronal reconstructions Date and time of exam: January 11, 2025, 1812 hours INDICATIONS: Seizures today CTDI: vol (mGy): 51.4 DLP: (mGycm): 1108 Technique: Multiple CT axial sections of the brain have been obtained, 5 mm slice thickness. Contrast has not been administered. 2-D sagittal, coronal reconstructions have been obtained Low dose protocols were performed. One or more of the following dose reduction techniques were used; automated exposure control, adjustment of the mA and/or KV according to patient size, use of iterative reconstruction technique. Findings: No significant ventricular enlargement. Intra-axial or extra-axial hemorrhage density is not seen. No mass effect or midline shift Basal cisterns are not remarkable. Fourth ventricle is midline. Cranial vault intact. Impression: Negative for acute hemorrhage, mass effect or midline shift Dictated By: Nghia Ramirez MD Signed By: <Electronically signed by Nghia Ramirez MD in OV> 01/11/251914
[2025-01-11 19:00] VITALS: BP 136/84; PULSE 61; RESP 18; O2SAT 96
[2025-01-11 20:38] LABS: Reflex Lactate? Y
[2025-01-11 20:41] VITALS: BP 145/87; PULSE 65; RESP 12; TEMP 36.8; O2SAT 100
[2025-01-11] MEDS: FAMOTIDINE INJ 10 MG/ML VIAL 2 ML 20 MG IVP (21:03)
[2025-01-11] MEDS: HEPARIN SOD INJ 5000 UNIT/ML VIAL SC (21:03)
[2025-01-11 21:18] LABS: Lactic Acid, 3 HR 1.3 mMol/L (0.4-2.0)
[2025-01-11 21:28] LABS: Collection Type, Urine Clean Catch
[2025-01-11 21:31] LABS: Bilirubin,Urine Negative (Negative); Blood,Urine Negative (Negative); Budding Yeast,Urine Present; Clarity,Urine Turbid (Clear/Hazy); Color,Urine Yellow (Lt Yel-Yel); Glucose, Urine Negative (Negative); Hyaline Casts,Urine < 1 /hpf (0-1); Ketones,Urine Negative (Negative); Leukocyte Esterase,Urine Positive (Negative); Nitrite,Urine Negative (Negative); PH,Urine 7.0 (5.0-7.0); Protein,Urine Trace (Neg - Trace); RBC,Urine 4 /hpf (0-3); Specific Gravity,Urine 1.025 (1.001-1.035); Squamous Epithelial Cell,Urine 7 /hpf (0-5); Urobilinogen,Urine Negative mg/dL (0.0-1.0); WBC,Urine 61 /hpf (0-5)
--- NOTE | 2025-01-11 21:45 | ESHP_ITS ---
<Statement entered by Jose Jorge MD - 01/12/25 07:32> I have discussed and was present for the essential components of the history, physical examination, diagnosis, and treatment plan with the resident. I agree with the patient's care as documented by the resident and amended herein by me. Jose Jorge MD FACP. Documentation for date of: 01/11/25 HPI History of Present Illness History of present illness: Patient is a 54-year-old female with a past medical history of seizures who presented to the emergency room via ambulance with a chief complaint of 6 seizures witnessed at home. ED Course Summary: Vitals: 134/86 HR 66 RR 18 T 97.6F O2 98%RA Lab: CBC unremarkable VBG pO2 85 CMP unremarkable UA +1 blood +1 protein Imaging: Head CT negative, EKG: Unremarkable CXR unremarkable Treatment: keppra 1000mg Consults neurology Dr. Drake Upon initial examination patient is AOx4 but almost unable to be communicated with due to mother speaking over everyone the whole time, very pedantic. Patient's mother is a very poor historian. States that patient began to clench her jaw, bilateral jerking movements, apneic episodes and 3 to 4 minutes of confusion. Family denied tongue biting and denied urinary incontinence. Family has been unable to refill carbamazepine for at least 2 weeks. Concern for medication noncompliance as primary caregiver mother, was unsure of dosage of medications. Seizure was witnessed in ED, patient made eye contact, loud audible noises and unilateral one arm shaking, another almost seizure occurred but the sister was somehow able to talk the patient out of the seizure. Then upon admittance another episode occurred where the patient was loudly yelling, making eye contact and unilaterally swinging her arms. Per chart review in 2019 EEG showed no epileptic waves. Recent stressors reported by the mother that they no longer spending $400/month on bingo which is hard for the patient. Patient has an implantable neurostimulator please do not do it MRI if neurostimulator is on. Code: Full Insulin: None Medical Hx: seizures Medications: carbamazepine 300mg keppra 1250 Allergies: Ibuprofen Surgical history: Cholecystectomy, VNS Fhx: Mother reports that she has a history of seizures and so does sister... sister disagrees. Living: with mother and brother Alcohol: Denies Cigarettes/tobacco: Denies Recreational drugs: Denies Patient admitted for: Seizure work up All 12 systems reviewed and were negative except otherwise stated in HPI. Exam Vital Signs Temp Pulse Resp BP Pulse Ox O2 Del Method O2 Flow Rate 98.2 F 65 12 145/87 H 100 Oxy Mask 10 01/11/25 20:41 01/11/25 20:41 01/11/25 20:41 01/11/25 20:41 01/11/25 20:41 01/11/25 20:41 01/11/25 20:41 Narrative Exam GENERAL APPEARANCE: AOx3. NAD, activity normal for age, well developed/ well nourished, no cyanosis, pallor, or diaphoresis. HEENT: Normocephalic atraumatic, no facial trauma, neck is supple. Lids/conjunctiva normal. Mucous membranes moist, nares normal, lips/teeth normal uvula midline without oral pharyngeal erythema, exudate or swelling TMs normal bilaterally. No lymphangitis/lymphedema. CARDIAC: Regular rate and rhythm, S1+S2 heard. No murmurs, rubs, or gallops noted RESPIRATORY: respiratory effort normal, speaks in full sentences, no tripod position, no accessory muscle use. Lungs clear to auscultation without rhonchi, wheezes, rales ABDOMINAL: NBS. Soft, ND/NT. No evidence of fluid wave. No pulsatile masses on exam, rebound tenderness, Sawant sign or pain over Mcburney's point. MUSCLES/EXTREMITIES: No abnormal range of motion, no swelling. DERM: Warm, pink and dry. No rashes, dermatoses, petechiae or lesions. NEUROLOGICAL: Speech is clear and appropriate. Normal level of consciousness. Gait and coordination are normal. 5/5 strength in all extremities. PSYCH: Normal mood and affect. Judgement/competence is appropriate Results: Labs 01/12/25 05:41 01/12/25 05:41 Labs: Short CBC 01/11/25 Range/Units 17:05 WBC 7.8 (3.6-11.0) Thou/mm3 Hgb 14.1 (12.0-16.0) g/dL Hct 41.0 (36.0-46.0) % Plt Count 210 (140-440) Thou/mm3 BMP 01/11/25 17:05 Sodium 141 Potassium 3.8 Chloride 105 Carbon Dioxide 24.9 BUN 11 Creatinine 0.8 Glucose 139 H Calcium 9.3 Cardiac Enzymes 01/11/25 Range/Units 17:05 Total Creatine Kinase 103 (34-171) U/L Liver Function 01/11/25 Range/Units 17:05 Total Bilirubin 0.4 (0.3-1.2) mg/dL AST 20 (0-34) U/L ALT 14 (10-49) U/L Alkaline Phosphatase 92 (46-116) U/L Albumin 4.8 (3.5-5.0) gm/dL Urine 01/11/25 01/11/25 Range/Units 17:49 21:20 Urine Color Yellow Yellow (Lt Yel-Yel) Urine Clarity Turbid A Turbid A (Clear/Hazy) Urine pH 6.5 7.0 (5.0-7.0) Ur Specific Doon 1.032 1.025 (1.001-1.035) Urine Protein 1+ A Trace (Neg - Trace) Urine Glucose (UA) Trace Negative (Negative) ABG Interpretation ABG results: 01/11/25 17:05 VBG pH 7.34 VBG pCO2 47 VBG pO2 85 H VBG Base Excess -1 Quality Measures Quality Measures none Medications Home Medications and Allergies Home Medications ?Medication ?Instructions ?Recorded ?Confirmed ?Type levetiracetam 500 mg tablet 1,250 mg PO Q12H 11/15/24 11/15/24 History Allergies Allergy/AdvReac Type Severity Reaction Status Date / Time No Known Allergies Allergy Verified 01/11/25 17:04 Visit Medications Acetaminophen (Acetaminophen 325 Mg Tablet) 650 mg PO Q6H PRN PRN Reason: Fever >100.4 or pain 1-3 Stop: 02/10/25 20:47 Docusate Sodium (Docusate Sod 100 Mg Capsule) 100 mg PO QDAY CECE; Protocol Stop: 02/11/25 08:59 Famotidine (Famotidine Inj 10 Mg/Ml Vial 2 Ml) 20 mg IVP Q12HR [facility] Stop: 02/10/25 20:59 Last Admin: 01/11/25 21:03 Dose: 20 mg Heparin Sodium (Porcine) (Heparin Sod Inj 5000 Unit/Ml Vial) 5,000 unit SC Q12HR CECE Stop: 01/25/25 20:59 Last Admin: 01/11/25 21:03 Dose: 5,000 unit Levetiracetam (Levetiracetam Inj 100 Mg/Ml Vial 5ml) 1,250 mg IVP Q12HR CECE Stop: 02/11/25 08:59 Lorazepam (Lorazepam 2 Mg/Ml Vial) 2 mg IVP Q5M PRN PRN Reason: breakthrough seizures Ondansetron HCl (Ondansetron Inj 2 Mg/Ml Inj 2 Ml) 4 mg IVP Q6H PRN; Protocol PRN Reason: NAUSEA OR VOMITING Stop: 02/10/25 20:47 Discontinued Medications Levetiracetam (Levetiracetam Inj 100 Mg/Ml Vial 5ml) 1,000 mg IVP X1 ONE Stop: 01/11/25 17:15 Last Admin: 01/11/25 17:40 Dose: 1,000 mg Lorazepam (Lorazepam 2 Mg/Ml Vial) 2 mg IVP X1 PRN PRN Reason: seizure Stop: 01/16/25 20:46 Assessment & Plan Plan Patient is a 54-year-old female with a past medical history of seizures who presented to the emergency room via ambulance with a chief complaint of 6 seizures witnessed at home. #Tonic clonic seizures 2/2 #Medication noncompliance #?PNES? Seizures well controlled with medication. Not been taking the medication for a week. Multiple seizures in ED and admission. Given Lorazepam and keppra. Presentation of eye movement, being talked out of the seizures, the long yelling suspiscious for PNES as well as 2019 EEG not showing epileptic waves. In support of tonic clonic seizures is the VNES surgically implanted. No MRI due to VNS. Plan: -Restart keppra -Lorazepam prn -Dr. Drake neuro consulted -Seizure precautions -swallow eval -PT referral in -EEG:____ #lactic acidosis- resolved 2.8 --> 1.3 with fluid administration Health Maintenance: Code status: Full DVT prophylaxis: Heparin subQ GI prophylaxis: Famotidine Diet: full/regular Strickland: yes Lines: PIV Supplemental O2: None Disposition: Tele due to seizures Patient seen and reviewed with attending Dr. Jorge. Note written by Fran Johnson MD PGY-1
[2025-01-11 22:29] VITALS: BP 140/81; PULSE 66; RESP 20; TEMP 36.9; O2SAT 95
[2025-01-11] MEDS: LORazepam 2 MG/ML VIAL IVP (23:26)
[2025-01-12] VITALS (7 sets, daily range): BP systolic 114–129; BP diastolic 61–89; PULSE 66–89; RESP 14–23; TEMP 36.1–37; O2SAT 93–98; BMI 43.6
[2025-01-12 02:44] LABS: Creatine Kinase 97 U/L (34-171)
[2025-01-12] MEDS: LORazepam 2 MG/ML VIAL IVP (05:23)
--- NOTE | 2025-01-12 05:34 | PC.NURSE ---
DR. GOVEA NOTIFIED REGARDING SEIZURE LIKE ACTIVITY LASTING APPROX 20 SEC. PT BEGAN SCREAMING, TENSE JAW, INTACT EYE CONTACT, SHAKING BILATERAL ARMS. MD STATES TO CONTINUE TO GIVE ATIVAN EVEN IF SEIZURE ACTIVITY STOPPED. NO POST ICTAL ACTIVITY NOTED. PT CONTINUED TO FOLLOW COMMANDS, ANSWER QUESTIONS.
[2025-01-12 06:26] LABS: Basophils # (Auto) 0.0 Thou/mm3 (0.0-0.2); Basophils % (Auto) 1 % (0-2.5); Eosinophils # (Auto) 0.0 Thou/mm3 (0.0-0.5); Eosinophils % (Auto) 0 % (0-10); Hematocrit 39.1 % (36.0-46.0); Hemoglobin 13.6 g/dL (12.0-16.0); Immature Granulocytes Auto 0.01 Thou/mm3 (0.00-0.00); Lymphocytes # (Auto) 1.7 Thou/mm3 (1.0-4.8); Lymphocytes % (Auto) 28 % (10-50); Mean Corpuscular HGB Conc 34.8 g/dl (31.0-37.0); Mean Corpuscular Hemoglobin 32.2 pg (25.0-35.0); Mean Corpuscular Volume 92 fL (80-100); Monocytes # (Auto) 0.5 Thou/mm3 (0.0-0.8); Monocytes % (Auto) 8 % (0-12); Neutrophils # (Auto) 4.0 Thou/mm3 (1.8-7.7); Neutrophils % (Auto) 64 % (37-80); Nucleated Red Blood Cell # 0.00 Thou/mm3 (0.00-0.00); Nucleated Red Blood Cell % 0 /100 WBC (0); Platelet Count 190 Thou/mm3 (140-440); RDW Standard Deviation 42.8 fL (36.4-46.3); Red Blood Count 4.23 Miln/mm3 (4.00-5.20); White Blood Count 6.3 Thou/mm3 (3.6-11.0)
[2025-01-12 06:46] LABS: Alanine Aminotransferase 10 U/L (10-49); Albumin, Serum 4.5 gm/dL (3.5-5.0); Albumin/Globulin Ratio 1.5 (1.2-2.2); Alkaline Phosphatase 86 U/L (46-116); Anion Gap 10 (7-16); Aspartate Amino Transferase 17 U/L (0-34); BUN/Creatinine Ratio 10 Ratio (12-20); Bilirubin,Total 0.7 mg/dL (0.3-1.2); Blood Urea Nitrogen 8 mg/dL (9-23); Calcium 9.2 mg/dL (8.3-10.6); Calcium (Corrected) 9.2 mg/dL (8.5-10.1); Carbon Dioxide 26.4 mMol/L (20.0-31.0); Chloride 105 mMol/L (98-107); Creatinine (Component) 0.8 mg/dL (0.6-1.3); Estimated Creatinine Clearance 102.5 mL/min (>60); Globulin 3.0 gm/dL (2.3-3.5); Glucose 100 mg/dL (74-106); Magnesium 2.2 mg/dL (1.6-2.6); Osmolality,Calculated 279 (275-295); Phosphorous 4.2 mg/dL (2.4-5.1); Potassium 3.6 mMol/L (3.4-5.1); Sodium 141 mMol/L (136-145); Thyroid Stimulating Hormone 1.22 uIU/mL (0.55-4.78); Total Protein 7.5 gm/dL (5.7-8.2); eGFR > 60 See Note
--- NOTE | 2025-01-12 08:01 | RESP.EEG ---
EEG COMPLETED AND READY TO READ
[2025-01-12] MEDS: levETIRAcetam INJ 100 MG/ML VIAL 5ML 1250 MG IVP ×2 (08:36→21:30)
[2025-01-12] MEDS: DOCUSATE SOD 100 MG CAPSULE PO (08:37)
[2025-01-12] MEDS: HEPARIN SOD INJ 5000 UNIT/ML VIAL SC ×2 (08:37→21:34)
[2025-01-12] MEDS: FAMOTIDINE INJ 10 MG/ML VIAL 2 ML 20 MG IVP ×2 (08:37→21:30)
--- NOTE | 2025-01-12 09:28 | PC.SS ---
Patient Merry Powell is a 54 Year old female admitted for Seizure. SS met with patient and patient's mother, Hilda Nolan at bedside to discuss discharge plan and verify demographic information. Patient reports she lives at home with motherPadilla patient and mother reports she is surrogate decision maker, [phone]. Patient reports she does not utilizes any source of DME to assist with ambulation. Patient is able to complete all ADL's independently. Choice of pharmacy is [facility]. PCP: Monica Santana. At time of discharge patient will return home when medically cleared. Discharge plan: Home Next of kin: Mother, Hilda Nolan
--- NOTE | 2025-01-12 10:00 | PC.NURSE ---
At 1000, walked into patients room and [facility] patient had seizure at 0948. [facility] patient began having hand tremors and slurred speech. Called MD and received orders for carbamazepine and lacosamide. Educated family on use of call light and measures to take when patient has seizures, ex. turn pt to side, safe environment, and call RN
[2025-01-12] MEDS: LACOSAMIDE 50 MG TABLET 100 MG PO ×2 (10:19→21:30)
--- NOTE | 2025-01-12 10:53 | PC.SS ---
SS follow up note; Dr. Drake consulting. Patient will discharge home when medically cleared.
--- NOTE | 2025-01-12 14:09 | ESPR_ITS ---
<Statement entered by Levi Caballero MD - 01/12/25 21:46> Patient seen and examined at bedside. I discussed and supervised with the customer operations intern physician who took care of this patient. I personally saw and examined the patient. I agree with most of the assessment and plan. Plan of care discussed with attending Dr. Ibrahim. Levi Caballero MD PGY-2 Documentation for date of: 01/12/25 Subjective Subjective Interval history: Patient has 3 home seizure medications: Lacosamide 100mg po bid, Levetriacetam 500mg 2.5 tablets po bid, and Carbamazepine 300mg po q8hr. She experienced seizure after not taking carbamazepine. Will resume all her seizure home medication. Will need to make appointment with her neruologist, Dr. Drake before discharge for follow up and Vagal Nerve Stimulatr mainteinance, including battery exchange. No Overnight events. Labs reviewed and patient examined at the bedside. Denies chest pain, palpation, SOB, abdominal pain, N/V, fevers or chills. Exam Vital Signs Temp Pulse Resp BP Pulse Ox O2 Del Method O2 Flow Rate 98.2 F 86 19 129/88 H 97 Room Air 2 01/12/25 12:00 01/12/25 12:00 01/12/25 12:00 01/12/25 12:00 01/12/25 12:00 01/12/25 12:00 01/11/25 22:29 Narrative Exam General: No acute distress, well nourished, AAO x3 Eye: Normal conjunctiva, no scleral icterus HENT: Normocephalic, atraumatic, hearing intact to conversation at normal volume, moist oral mucosa Neck: Supple, non-tender, no JVD, no lymphadenopathy Lungs: Non-labored respirations, symmetric chest rise, Clear to auscultate bilaterally, No wheezing, rhonchi, crackles Heart: Peripheral pulses intact bilaterally, Regular Rate and Rhythm. Abdomen: Soft, non-tender, non-distended, no palpable masses Musculoskeletal: Normal range of motion and strength, No cyanosis or edema, No visible joint swelling Skin: Skin is warm, dry, no rashes or lesions. Psychiatric: Cooperative, appropriate mood and affect, Awake and alert, not agitated Neuro: Cranial nerves II-XII grossly intact. Strength 5/5 throughout. Sensations intact to light touch. Objective Labs 01/12/25 05:41 01/12/25 05:41 Labs: Laboratory Results - last 24 hr 01/11/25 01/11/25 01/11/25 17:05 17:49 20:55 WBC 7.8 RBC 4.43 Hgb 14.1 Hct 41.0 MCV 93 MCH 31.8 MCHC 34.4 RDW Std Deviation 42.6 Plt Count 210 Neut % (Auto) 70 Lymph % (Auto) 23 [place] % (Auto) 7 Eos % (Auto) 0 Baso % (Auto) 1 Neut # (Auto) 5.4 Lymph # (Auto) 1.8 [place] # (Auto) 0.5 Eos # (Auto) 0.0 Baso # (Auto) 0.0 Immature Gran # (Auto) 0.03 H Absolute Nucleated RBC 0.00 Immature Gran % 0 Nucleated RBC % 0 VBG pH 7.34 VBG pCO2 47 VBG pO2 85 H VBG O2 Sat ([place]) 96 VBG Base Excess -1 Sodium 141 Potassium 3.8 Chloride 105 Carbon Dioxide 24.9 Anion Gap 11 BUN 11 Creatinine 0.8 Estim Creat Clear Calc 102.5 eGFR > 60 BUN/Creatinine Ratio 14 Glucose 139 H Calculated Osmolality 282 Lactic Acid 2.8 H 1.3 Calcium 9.3 Corrected Calcium 9.3 Phosphorus 4.6 Magnesium 2.2 Total Bilirubin 0.4 AST 20 ALT 14 Alkaline Phosphatase 92 Total Creatine Kinase 103 Total Protein 7.7 Albumin 4.8 Globulin 2.9 Albumin/Globulin Ratio 1.7 Procalcitonin < 0.04 TSH HCG, Qual Negative Ur Collection Type Clean Catch Urine Color Yellow Urine Clarity Turbid A Urine pH 6.5 Ur Specific [place] 1.032 Urine Protein 1+ A Urine Glucose (UA) Trace Urine Ketones Negative Urine Blood 1+ A Urine Nitrite Negative Urine Bilirubin Negative Urine Urobilinogen (Auto) Negative Ur Leukocyte Esterase Negative Urine RBC 8 H Urine WBC 4 Ur Squamous Epith Cells 1 Amorphous Crystals Present A Urine Bacteria None Hyaline Casts Urine Yeast ([place]) Ur Culture Indicated? Not Indicated 01/11/25 01/12/25 01/12/25 21:20 01:34 05:41 WBC 6.3 RBC 4.23 Hgb 13.6 Hct 39.1 MCV 92 MCH 32.2 MCHC 34.8 RDW Std Deviation 42.8 Plt Count 190 Neut % (Auto) 64 Lymph % (Auto) 28 [place] % (Auto) 8 Eos % (Auto) 0 Baso % (Auto) 1 Neut # (Auto) 4.0 Lymph # (Auto) 1.7 [place] # (Auto) 0.5 Eos # (Auto) 0.0 Baso # (Auto) 0.0 Immature Gran # (Auto) 0.01 H Absolute Nucleated RBC 0.00 Immature Gran % 0 Nucleated RBC % 0 VBG pH VBG pCO2 VBG pO2 VBG O2 Sat ([place]) VBG Base Excess Sodium 141 Potassium 3.6 Chloride 105 Carbon Dioxide 26.4 Anion Gap 10 BUN 8 L Creatinine 0.8 Estim Creat Clear Calc 102.5 eGFR > 60 BUN/Creatinine Ratio 10 L Glucose 100 Calculated Osmolality 279 Lactic Acid Calcium 9.2 Corrected Calcium 9.2 Phosphorus 4.2 Magnesium 2.2 Total Bilirubin 0.7 AST 17 ALT 10 Alkaline Phosphatase 86 Total Creatine Kinase 97 Total Protein 7.5 Albumin 4.5 Globulin 3.0 Albumin/Globulin Ratio 1.5 Procalcitonin TSH 1.22 HCG, Qual Ur Collection Type Clean Catch Urine Color Yellow Urine Clarity Turbid A Urine pH 7.0 Ur Specific [place] 1.025 Urine Protein Trace Urine Glucose (UA) Negative Urine Ketones Negative Urine Blood Negative Urine Nitrite Negative Urine Bilirubin Negative Urine Urobilinogen (Auto) Negative Ur Leukocyte Esterase Positive Urine RBC 4 H Urine WBC 61 H Ur Squamous Epith Cells 7 H Amorphous Crystals Urine Bacteria None Hyaline Casts < 1 Urine Yeast (Bud[place]) Present A Ur Culture Indicated? ABG Interpretation ABG results: 01/11/25 17:05 VBG pH 7.34 VBG pCO2 47 VBG pO2 85 H VBG Base Excess -1 Quality Measures Quality Measures none Assessment & Plan Assessment Current Active Medications: Generic Name Dose Route Start Last Admin Trade Name Freq PRN Reason Stop Dose Admin Acetaminophen 650 mg 01/11/25 20:48 Acetaminophen 325 Mg Tablet PO 02/10/25 20:47 Q6H PRN Fever >100.4 or pain 1-3 Carbamazepine 300 mg 01/12/25 10:10 01/12/25 13:56 Carbamazepine 100 Mg Chew PO 02/11/25 10:09 300 mg TID CECE Administration Docusate Sodium 100 mg 01/12/25 09:00 01/12/25 08:37 Docusate Sod 100 Mg Capsule PO 02/11/25 08:59 100 mg QDAY CECE Administration Protocol Famotidine 20 mg 01/11/25 21:00 01/12/25 08:37 Famotidine Inj 10 Mg/Ml Vial 2 Ml IVP 02/10/25 20:59 20 mg Q12HR CECE Administration Heparin Sodium (Porcine) 5,000 unit 01/11/25 21:00 01/12/25 08:37 Heparin Sod Inj 5000 Unit/Ml Vial SC 01/25/25 20:59 5,000 unit Q12HR CECE Administration Lacosamide 100 mg 01/12/25 10:15 01/12/25 10:19 Lacosamide 50 Mg Tablet PO 02/11/25 10:14 100 mg BID CECE Administration Levetiracetam 1,250 mg 01/12/25 09:00 01/12/25 08:36 Levetiracetam Inj 100 Mg/Ml Vial 5ml IVP 02/11/25 08:59 1,250 mg Q12HR CECE Administration Lorazepam 2 mg 01/11/25 21:23 01/12/25 05:23 Lorazepam 2 Mg/Ml Vial IVP 2 mg Q5M PRN Administration breakthrough seizures Ondansetron HCl 4 mg 01/11/25 20:48 Ondansetron Inj 2 Mg/Ml Inj 2 Ml IVP 02/10/25 20:47 Q6H PRN NAUSEA OR VOMITING Protocol Plan Patient is a 54-year-old female with a past medical history of seizures who presented to the emergency room via ambulance with a chief complaint of 6 seizures witnessed at home. Patient was admitted for management of seizures #Tonic clonic seizures 2/2 #Medication noncompliance #?PNES? -Seizures well controlled with medication. Not been taking the medication for a week. Multiple seizures in ED and admission. Given Lorazepam and keppra. Presentation of eye movement, being talked out of the seizures, the long yelling suspiscious for PNES as well as 2019 EEG not showing epileptic waves. In support of tonic clonic seizures is the VNES surgically implanted. No MRI due to VNS. -The main etiology likely patient unable to take Carbamazepine 300mg po q8hr -Head CT (01/11/2025): Negative for acute hemorrhage, mass effect or midline shift Plan: -Restarted patient's home med Lacosamide 100mg po bid, Levetriacetam 500mg 2.5 tablets po bid, and Carbamazepine 300mg po q8hr. -Lorazepam prn -Seizure precautions -swallow eval -PT referral in -Pending EEG. -Neurology, Dr. Drake consulted appreciate recommendations #lactic acidosis- resolved 2.8 --> 1.3 with fluid administration Health Maintenance: Code status: Full DVT prophylaxis: Heparin subQ GI prophylaxis: Famotidine Diet: full/regular [place]: yes Lines: PIV Supplemental O2: None Disposition: Tele due to seizures Assessment and plan discussed with my attending physician Dr. Ibrahim and Dr. Caballero (PGY-2) Dr. Mayer (PGY-1) - Internal medicine resident Attending Provider Attestation/Addendum I have discussed and was present for the essential components of the history, physical examination, diagnosis, and treatment plan with the resident. I agree with the patient's care as documented by the resident and amended herein by me. Nitin Ibrahim DO. Although this document has been carefully reviewed, there may still be some phonetic and other typographical errors. These errors are purely grammatical due to imperfections in the software program and should not be construed in any way to compromise the substance of the patient's medical care during this visit. Patient seen and evaluated this AM. Patient's home meds restarted, carbamazepine, lacosamide and Keppra. Patient will also need the battery replaced in her VNS, can do it [facility] for Dr Drake. Patient remained stable clinically overnight, can DC tomorrow
--- NOTE | 2025-01-12 15:12 | PC.PT ---
PT eval only. Patient is xI with bed mobility, transfers, and ambulation with no AD. Patient is safe to ambulate to the bathroom and in the halls with 1 staff for safety 2/2 her history of seizures. RN made aware.
--- NOTE | 2025-01-12 15:24 | PC.SS ---
SS follow up note; SS was contacted by Jamil from PT informing SS that patient was requesting a Rollator walker. SS sent DME referral for Rollator walker through [employer].
--- NOTE | 2025-01-12 17:30 | ESCONSULT_ITS ---
HPI Data of Consult Requesting Physician: Jose Jorge MD Admitting Provider: Jose Jorge MD Attending Provider: Niles Drake MD Primary Care Provider: Monica Santana PA-C Consult Narrative History of present illness: Ms. Powell is a 54-year-old female with past medical history of epilepsy and anxiety, poor compliance with medications. She was brought in due to multiple breakthrough seizures witnessed at home. Per documentation, patient had generalized tonic-clonic seizures lasting 3-4 minutes with postictal phase. No tongue biting or urine incontinence noted at home or in the ED. Per 2019 EEG reevaluation, patient did have some epileptic waves. Patient had a VNS device placed, but has not been evaluated recently. Patient was known to neurology outpatient clinic, however has not been following over the last 2 years. Family present at bedside, per sister, patient does not get along with mother and insist on maintaining autonomy over her medications. Family noted that patient did run out of her medications on multiple occasions initially lacosamide and then Tegretol, which had to be refilled after a few days. Patient has been relatively seizure-free despite missing a couple doses in between, until now when she had a breakthrough seizure. Family was informed that patient will need close observation for compliance, patient was also counseled extensively about the same. cc:: cc: Jose Jorge MD Review of Systems Review of Systems Narrative Review of Systems: GENERAL: Denies fevers/chills, diaphoresis. HEENT: Denies headache or visual/hearing changes. Denies nasal discharge. NEURO: Denies unusual weakness or difficulty speaking. CARDIO: Denies chest pain, palpitations. PULM: Denies SOB, cough, wheezing. GI: Denies abdominal pain, no N/V, no C/D. Reports having BMs URO: Denies burning/itching/pain/urinary changes. 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 MSK/EXT/SKIN: Denies skeletal/muscle pain, changes in upper or lower extremities, itchiness, superficial skin chnages. PSYCH: Cooperative, pleasant mood & affect. The rest of the review of systems is otherwise negative. Exam Vital Signs Temp Pulse Resp BP Pulse Ox O2 Del Method O2 Flow Rate 97 F 68 18 114/61 96 Room Air 2 01/12/25 16:00 01/12/25 16:00 01/12/25 16:00 01/12/25 16:00 01/12/25 16:00 01/12/25 16:00 01/11/25 22:29 Narrative Exam Constitutional Alert, oriented x2 and comfortable. Obese BMI 43 HEENT Vision grossly intact, PERRL. Patent nares. Trachea midline. Respiratory Chest normal on inspection and clear to auscultation bilaterally. Cardiovascular S1 and S2 audible, RRR. No murmurs or carotid bruit. No gross JVD. Abdominal Soft and BS + ; non tender to palpation in all quadrants. Genitourinary No bladder tenderness, no flank pain. Normal to palpation. Musculoskeletal Extremities tone within normal limits. No LE edema. Neurological CN II - XII grossly intact. Upper and lower extremity strength 5/5, sensation grossly intact. Skin Warm, dry and intact. No apparent lesions. Psychiatric Patient has a good affect, is cooperative. Results Labs 01/13/25 04:55 01/13/25 04:55 Labs: Short CBC 01/11/25 01/12/25 Range/Units 17:05 05:41 WBC 7.8 6.3 (3.6-11.0) Thou/mm3 Hgb 14.1 13.6 (12.0-16.0) g/dL Hct 41.0 39.1 (36.0-46.0) % Plt Count 210 190 (140-440) Thou/mm3 BMP 01/11/25 01/12/25 17:05 05:41 Sodium 141 141 Potassium 3.8 3.6 Chloride 105 105 Carbon Dioxide 24.9 26.4 BUN 11 8 L Creatinine 0.8 0.8 Glucose 139 H 100 Calcium 9.3 9.2 Cardiac Enzymes 01/11/25 01/12/25 Range/Units 17:05 01:34 Total Creatine Kinase 103 97 (34-171) U/L Liver Function 01/11/25 01/12/25 Range/Units 17:05 05:41 Total Bilirubin 0.4 0.7 (0.3-1.2) mg/dL AST 20 17 (0-34) U/L ALT 14 10 (10-49) U/L Alkaline Phosphatase 92 86 (46-116) U/L Albumin 4.8 4.5 (3.5-5.0) gm/dL Urine 01/11/25 01/11/25 Range/Units 17:49 21:20 Urine Color Yellow Yellow (Lt Yel-Yel) Urine Clarity Turbid A Turbid A (Clear/Hazy) Urine pH 6.5 7.0 (5.0-7.0) Ur Specific [place] 1.032 1.025 (1.001-1.035) Urine Protein 1+ A Trace (Neg - Trace) Urine Glucose (UA) Trace Negative (Negative) ABG Interpretation ABG results: 01/11/25 17:05 VBG pH 7.34 VBG pCO2 47 VBG pO2 85 H VBG Base Excess -1 Quality Measures Quality Measures none Medications Home Medications and Allergies Home Medications ?Medication ?Instructions ?Recorded ?Confirmed ?Type levetiracetam 500 mg tablet 1,250 mg PO Q12H 11/15/24 01/12/25 History lacosamide 100 mg tablet 100 mg PO BID 01/12/2501/12 History Allergies Allergy/AdvReac Type Severity Reaction Status Date / Time No Known Allergies Allergy Verified 01/11/25 17:04 Visit Medications Acetaminophen (Acetaminophen 325 Mg Tablet) 650 mg PO Q6H PRN PRN Reason: Fever >100.4 or pain 1-3 Stop: 02/10/25 20:47 Carbamazepine (Carbamazepine 100 Mg Chew) 300 mg PO TID [facility] Stop: 02/11/25 10:09 Last Admin: 01/12/25 13:56 Dose: 300 mg Docusate Sodium (Docusate Sod 100 Mg Capsule) 100 mg PO QDAY [facility]; Protocol Stop: 02/11/25 08:59 Last Admin: 01/12/25 08:37 Dose: 100 mg Famotidine (Famotidine Inj 10 Mg/Ml Vial 2 Ml) 20 mg IVP Q12HR [facility] Stop: 02/10/25 20:59 Last Admin: 01/12/25 08:37 Dose: 20 mg Heparin Sodium (Porcine) (Heparin Sod Inj 5000 Unit/Ml Vial) 5,000 unit SC Q12HR [facility] Stop: 01/25/25 20:59 Last Admin: 01/12/25 08:37 Dose: 5,000 unit Lacosamide (Lacosamide 50 Mg Tablet) 100 mg PO BID [facility] Stop: 02/11/25 10:14 Last Admin: 01/12/25 10:19 Dose: 100 mg Levetiracetam (Levetiracetam Inj 100 Mg/Ml Vial 5ml) 1,250 mg IVP Q12HR [facility]CE Stop: 02/11/25 08:59 Last Admin: 01/12/25 08:36 Dose: 1,250 mg Lorazepam (Lorazepam 2 Mg/Ml Vial) 2 mg IVP Q5M PRN PRN Reason: breakthrough seizures Last Admin: 01/12/25 05:23 Dose: 2 mg Ondansetron HCl (Ondansetron Inj 2 Mg/Ml Inj 2 Ml) 4 mg IVP Q6H PRN; Protocol PRN Reason: NAUSEA OR VOMITING Stop: 02/10/25 20:47 Discontinued Medications Levetiracetam (Levetiracetam Inj 100 Mg/Ml Vial 5ml) 1,000 mg IVP X1 ONE Stop: 01/11/25 17:15 Last Admin: 01/11/25 17:40 Dose: 1,000 mg Lorazepam (Lorazepam 2 Mg/Ml Vial) 2 mg IVP X1 PRN PRN Reason: seizure Stop: 01/16/25 20:46 Assessment & Plan Plan Patient is a 54-year-old female well-known to neurology clinic, who was admitted for breakthrough seizures in the setting of poor compliance and possible VNS device battery run out. Breakthrough seizure In the setting of History of epilepsy VNS device out of battery Poor compliance - Patient is well-known to neurology practice, however has not followed up at the clinic in over 2 years - Per 2019 EEG reevaluation, patient did have abnormal study. Patient had a VNS device placed, but has not been evaluated recently. - Per sister, patient does not get along with mother and insist on maintaining autonomy over her medications. Family noted that patient did run out of her medications on multiple occasions initially lacosamide and then Tegretol, which had to be refilled after a few days. Patient has been relatively seizure-free despite missing a couple doses in between, until now when she had a breakthrough seizure. Recommendations: - We will do a VNS device check on January 19 in [facility]. If out of battery, patient will need to follow-up with Dr. Dunaway in [place] for replacement. - Continue current management with Keppra 1250 mg twice daily + Vimpat 100 mg twice daily + carbamazepine 100 mg 3 times daily. - Family was informed that patient will need close observation for compliance, patient was also counseled extensively about the same. Other medical problems to be managed per primary team. Thank you for the consult. Neurology will continue to follow the case with you. Plan of care discussed with attending Neurologist Dr Drake, - Jamarcus Phan M.D. PGY3 Disclaimer: Minor errors in envelope stuffer may be present as this note was dictated using voice recognition software. Attending Provider Attestation/Addendum I personally have seen and examined the patient at the bedside and I agreed with the resident's findings, assessment and plan of care. Patient with breakthrough seizure, secondary to medication compliance/VNS battery exhaustion. Will continue with the current management as you see above. Patient will be seen on 19 January for VNS programming at [facility]. EEG from yesterday showed multifocal spike and wave activity consistent with seizures.
[2025-01-13] VITALS (7 sets, daily range): BP systolic 108–140; BP diastolic 72–94; PULSE 60–89; RESP 17–24; TEMP 36.1–36.7; O2SAT 95–100; BMI 43.6
[2025-01-13 05:26] LABS: Basophils # (Auto) 0.0 Thou/mm3 (0.0-0.2); Basophils % (Auto) 1 % (0-2.5); Eosinophils # (Auto) 0.0 Thou/mm3 (0.0-0.5); Eosinophils % (Auto) 1 % (0-10); Hematocrit 38.7 % (36.0-46.0); Hemoglobin 13.3 g/dL (12.0-16.0); Immature Granulocytes Auto 0.01 Thou/mm3 (0.00-0.00); Lymphocytes # (Auto) 2.2 Thou/mm3 (1.0-4.8); Lymphocytes % (Auto) 34 % (10-50); Mean Corpuscular HGB Conc 34.4 g/dl (31.0-37.0); Mean Corpuscular Hemoglobin 32.0 pg (25.0-35.0); Mean Corpuscular Volume 93 fL (80-100); Monocytes # (Auto) 0.4 Thou/mm3 (0.0-0.8); Monocytes % (Auto) 7 % (0-12); Neutrophils # (Auto) 3.7 Thou/mm3 (1.8-7.7); Neutrophils % (Auto) 58 % (37-80); Nucleated Red Blood Cell # 0.00 Thou/mm3 (0.00-0.00); Nucleated Red Blood Cell % 0 /100 WBC (0); Platelet Count 187 Thou/mm3 (140-440); RDW Standard Deviation 43.3 fL (36.4-46.3); Red Blood Count 4.16 Miln/mm3 (4.00-5.20); White Blood Count 6.4 Thou/mm3 (3.6-11.0)
[2025-01-13 05:41] LABS: Alanine Aminotransferase 12 U/L (10-49); Albumin, Serum 4.4 gm/dL (3.5-5.0); Albumin/Globulin Ratio 1.7 (1.2-2.2); Alkaline Phosphatase 81 U/L (46-116); Anion Gap 7 (7-16); Aspartate Amino Transferase 17 U/L (0-34); BUN/Creatinine Ratio 14 Ratio (12-20); Bilirubin,Total 0.4 mg/dL (0.3-1.2); Blood Urea Nitrogen 13 mg/dL (9-23); Calcium 8.7 mg/dL (8.3-10.6); Calcium (Corrected) 8.7 mg/dL (8.5-10.1); Carbon Dioxide 27.8 mMol/L (20.0-31.0); Chloride 103 mMol/L (98-107); Creatinine (Component) 0.9 mg/dL (0.6-1.3); Estimated Creatinine Clearance 91.1 mL/min (>60); Globulin 2.6 gm/dL (2.3-3.5); Glucose 95 mg/dL (74-106); Magnesium 2.3 mg/dL (1.6-2.6); Osmolality,Calculated 275 (275-295); Phosphorous 4.5 mg/dL (2.4-5.1); Potassium 4.2 mMol/L (3.4-5.1); Sodium 138 mMol/L (136-145); Total Protein 7.0 gm/dL (5.7-8.2); eGFR > 60 See Note
[2025-01-13] MEDS: DOCUSATE SOD 100 MG CAPSULE PO (08:23)
[2025-01-13] MEDS: FAMOTIDINE INJ 10 MG/ML VIAL 2 ML 20 MG IVP (08:23)
[2025-01-13] MEDS: levETIRAcetam INJ 100 MG/ML VIAL 5ML 1250 MG IVP (08:24)
[2025-01-13] MEDS: LACOSAMIDE 50 MG TABLET 100 MG PO (08:24)
[2025-01-13] MEDS: HEPARIN SOD INJ 5000 UNIT/ML VIAL SC (08:24)
--- NOTE | 2025-01-13 11:03 | ESDS_ITS ---
<Statement entered by Estrellita Vizcarra MD - 01/13/25 16:57> Patient was seen and examined by me personally. I have reviewed the below documentation by the team resident and agree with its findings. Discharge plan was discussed with the attending, Dr. Serafin Patrick MD Internal Medicine, PGY-2 Planned Discharge Date 01/13/25 DS: Providers Provider Date of admission: 01/11/25 20:48 Primary care physician: Monica Santana PA-C Admitting Provider: Jose Jorge MD Attending Provider on Admission: Jose Jorge MD Consults: 01/11/25 17:54 Consult to Neurology / Tele-Neurology Stat Comment: seizure Consulting Provider: Niles Drake 01/11/25 20:54 Referral Speech Therapy Stat Comment: 01/11/25 21:16 Referral Physical Therapy Routine Comment: Physician Instructions: Attending Provider on DC: Mario Mayer DO Discharging Provider: Mario Mayer DO DS: Diagnosis Problem List Completed Was Problem List Reviewed/Reconciled?: Yes Hospital Course Hospital Course Hospital course: Summary: Patient is a 54-year-old female with a past medical history of seizures who presented to the emergency room via ambulance with a chief complaint of 6 seizures witnessed at home. Patient was admitted for management of seizures. She was given her home ant-seizure medication regime: Lacosamide 100mg po bid, [id number] po bid, and Carbamazepine 300mg po q8hr. EEG showed seizure activity. Patient was instructed to follow up with Neurology, Dr. Drake. Patient was stable and discharged on 01/13/2025. ED Course: Vitals: 134/86 HR 66 RR 18 T 97.6F O2 98%RA Lab: CBC unremarkable VBG pO2 85 CMP unremarkable UA +1 blood +1 protein Imaging: Head CT negative, EKG: Unremarkable CXR unremarkable Treatment: keppra 1000mg Consults neurology Dr. Drake MRI could not be done due to Vagal Nerve Stimulator Device. Hospital Course: During hospital stay, patient restarted her home anti-seizure medication: Lacosamide 100mg po bid, [id number] po bid, and Carbamazepine 300mg po q8hr. Per neurology, patient will follow up with neurology, Dr. Drake for VNS device check on January 19 in [facility]. If it goes out of battery, patient would need to follow up with Dr. Dunaway in [place] for replacement. EEG (01/13/2025) was abnormal with multifocal spike and wave discharges consistent with seizure disorder. Patient received a session of CPAP for suspected obstructive sleep apnea. Outpatient sleep study is recommended for further evaluation. Patient's vitals and labs was stable and was discharged on 01/13. #Tonic clonic seizures 2/2 #Medication noncompliance #?PNES? #lactic acidosis- resolved #Obstructive Sleep Apnea? Instructions: Please continue taking your sezirue medications as follows: - Carbamazepine 300 mg 3 times daily - Lacosamide 100 mg twice daily - Keppra 1250 mg twice daily Please follow-up with your primary doctor in 7-10 days. Please follow-up with neurologist Dr. Drake January 19 at [facility]. Return to develop new or worsening symptoms. Assessment and plan discussed with my attending physician Dr. Ibrahim and Dr. Vizcarra (PGY-2) Dr. Mayer (PGY-1) - Internal medicine resident Status at Discharge Overall status at discharge: patient is progressing back to baseline Time Spent with Patient Time attestation: Total time spent providing and/or coordinating discharge services: Time spent: Greater than 30 minutes Exam Vital Signs Temp Pulse Resp BP Pulse Ox O2 Del Method O2 Flow Rate 98.0 F 60 18 135/84 H 96 Room Air 2 01/13/25 08:00 01/13/25 08:00 01/13/25 08:00 01/13/25 08:00 01/13/25 08:00 01/13/25 08:00 01/11/25 22:29 FiO2 25 01/13/25 04:00 Narrative Exam General: No acute distress, well nourished, AAO x3 Eye: Normal conjunctiva, no scleral icterus HENT: Normocephalic, atraumatic, hearing intact to conversation at normal volume, moist oral mucosa Neck: Supple, non-tender, no JVD, no lymphadenopathy Lungs: Non-labored respirations, symmetric chest rise, Clear to auscultate bilaterally, No wheezing, rhonchi, crackles Heart: Peripheral pulses intact bilaterally, Regular Rate and Rhythm. Abdomen: Soft, non-tender, non-distended, no palpable masses Musculoskeletal: Normal range of motion and strength, No cyanosis or edema, No visible joint swelling Skin: Skin is warm, dry, no rashes or lesions. Psychiatric: Cooperative, appropriate mood and affect, Awake and alert, not agitated Neuro: Cranial nerves II-XII grossly intact. Strength 5/5 throughout. Sensations intact to light touch. Discharge Plan Plan Patient Disposition: HOME (Self Care) Patient condition on transfer: Stable Care Plan Goals: Please continue taking your seizure medications as follows: - Carbamazepine 300 mg 3 times daily - Lacosamide 100 mg twice daily - Keppra 1250 mg twice daily Please follow-up with your primary doctor in 7-10 days. Please follow-up with neurologist Dr. Drake January 19 at [facility]. Return to develop new or worsening symptoms. Prescriptions/Referrals Prescriptions/Med Rec: Continued levetiracetam 500 mg tablet 1,250 mg PO Q12H 30 Days Qty: 150 2RF Patient Comments: TAKE 2.5 TABLETS BY MOUTH 2 TIMES A DAY carbamazepine 300 mg capsule, ER multiphase 12 hr 300 mg PO TID 30 Days Qty: 90 2RF Patient Comments: TAKE 1 CAPSULE BY MOUTH EVERY 8 HOURS FOR SEIZURES lacosamide 100 mg tablet 100 mg PO BID 30 Days Qty: 60 2RF Patient Comments: TAKE 1 TABLET BY MOUTH TWICE A DAY Referrals: Monica Santana PA-C [Primary Care Provider, Family Practice] Patient/Caregiver Discharge Instructions Discharge Activity: activity as tolerated Education Materials: Treating Epilepsy: Medicines, Self-Care for Epilepsy, Living Well with Epilepsy, Anatomy of the Brain, Discharge Instructions for Epilepsy, Epilepsy [facility] Print Language: Cambodian Stand Alone Forms: Marisela Award Info., Patient Portal Info Letter Discharge Order Discharge Orders: Discharge (Routine); Ordered 01/13/25 Ordered By: Levi Caballero Quality Discharge Quality Measures VTE prophylaxis Attestestation MD Attestation I have discussed and was present for the essential components of the discharge history, physical examination, diagnosis, and discharge treatment plan with the resident. I agree with the patient's discharge care as documented by the resident and amended herein by me. Nitin Ibrahim DO. Discharge instructions were relayed to the patient's mother who is the patient's beater room supervisor, all questions were answered satisfactorily, patient's home meds were restarted she will also be instructed to follow-up on 19 January at [facility] in which she will see her neurologist, Dr Drake at that time to determine if the battery in her VNS is adequate or need to be changed. Patient was stable, afebrile, tolerating p.o. intake and mentation much improved on day of discharge. Although this document has been carefully reviewed, there may still be some phonetic and other typographical errors. These errors are purely grammatical due to imperfections in the software program and should not be construed in any way to compromise the substance of the patient's medical care during this visit.
--- NOTE | 2025-01-13 14:01 | PD.RESPRO ---
Documentation for date of: 01/13/25 Subjective Subjective Interval history: Ms. Powell is a 54-year-old female with past medical history of epilepsy and anxiety, poor compliance with medications. She was brought in due to multiple breakthrough seizures witnessed at home. Per documentation, patient had generalized tonic-clonic seizures lasting 3-4 minutes with postictal phase. No tongue biting or urine incontinence noted at home or in the ED. Per 2019 EEG reevaluation, patient did have some epileptic waves. Patient had a VNS device placed, but has not been evaluated recently. Patient was known to neurology outpatient clinic, however has not been following over the last 2 years. 01/12/2025: Family present at bedside, per sister, patient does not get along with mother and insist on maintaining autonomy over her medications. Family noted that patient did run out of her medications on multiple occasions initially lacosamide and then Tegretol, which had to be refilled after a few days. Patient has been relatively seizure-free despite missing a couple doses in between, until now when she had a breakthrough seizure. Family was informed that patient will need close observation for compliance, patient was also counseled extensively about the same. 01/13/2025: Patient is safe to DC on Lacosamide 100mg po bid, Levetriacetam 500mg 2.5 tablets po bid, and Carbamazepine 300mg po q8hr. She experienced seizure missing a few doses of Carbamazepine. Will need to follow up in [facility] with Dr. Drake for Vagal Nerve Stimulator Device battery check on January 19, and possible battery exchange in [place] with Dr Dunaway, will need a areferral for the same. Currently stable and seizure free for >24 hours. Exam Vital Signs Temp Pulse Resp BP Pulse Ox O2 Del Method O2 Flow Rate 97.6 F 74 18 108/72 97 Room Air 2 01/13/25 12:00 01/13/25 12:00 01/13/25 12:00 01/13/25 12:00 01/13/25 12:00 01/13/25 12:00 01/11/25 22:29 FiO2 25 01/13/25 04:00 Narrative Exam Constitutional Alert, oriented x2 and comfortable. Obese BMI 43 HEENT Vision grossly intact, PERRL. Patent nares. Trachea midline. Respiratory Chest normal on inspection and clear to auscultation bilaterally. Cardiovascular S1 and S2 audible, RRR. No murmurs or carotid bruit. No gross JVD. Abdominal Soft and BS + ; non tender to palpation in all quadrants. Genitourinary No bladder tenderness, no flank pain. Normal to palpation. Musculoskeletal Extremities tone within normal limits. No LE edema. Neurological CN II - XII grossly intact. Upper and lower extremity strength 5/5, sensation grossly intact. Skin Warm, dry and intact. No apparent lesions. Psychiatric Patient has a good affect, is cooperative. Objective Labs 01/13/25 04:55 01/13/25 04:55 Labs: Laboratory Results - last 24 hr 01/13/25 04:55 WBC 6.4 RBC 4.16 Hgb 13.3 Hct 38.7 MCV 93 MCH 32.0 MCHC 34.4 RDW Std Deviation 43.3 Plt Count 187 Neut % (Auto) 58 Lymph % (Auto) 34 Mckean % (Auto) 7 Eos % (Auto) 1 Baso % (Auto) 1 Neut # (Auto) 3.7 Lymph # (Auto) 2.2 Mckean # (Auto) 0.4 Eos # (Auto) 0.0 Baso # (Auto) 0.0 Immature Gran # (Auto) 0.01 H Absolute Nucleated RBC 0.00 Immature Gran % 0 Nucleated RBC % 0 Sodium 138 Potassium 4.2 D Chloride 103 Carbon Dioxide 27.8 Anion Gap 7 BUN 13 Creatinine 0.9 Estim Creat Clear Calc 91.1 eGFR > 60 BUN/Creatinine Ratio 14 Glucose 95 Calculated Osmolality 275 Calcium 8.7 Corrected Calcium 8.7 Phosphorus 4.5 Magnesium 2.3 Total Bilirubin 0.4 AST 17 ALT 12 Alkaline Phosphatase 81 Total Protein 7.0 Albumin 4.4 Globulin 2.6 Albumin/Globulin Ratio 1.7 ABG Interpretation ABG results: 01/11/25 17:05 VBG pH 7.34 VBG pCO2 47 VBG pO2 85 H VBG Base Excess -1 Quality Measures Quality Measures VTE prophylaxis Assessment & Plan Assessment Current Active Medications: Generic Name Dose Route Start Last Admin Trade Name Freq PRN Reason Stop Dose Admin Acetaminophen 650 mg 01/11/25 20:48 Acetaminophen 325 Mg Tablet PO 02/10/25 20:47 Q6H PRN Fever >100.4 or pain 1-3 Carbamazepine 300 mg 01/12/25 10:10 01/13/25 05:46 Carbamazepine 100 Mg Chew PO 02/11/25 10:09 300 mg TID CECE Administration Docusate Sodium 100 mg 01/12/25 09:00 01/13/25 08:23 Docusate Sod 100 Mg Capsule PO 02/11/25 08:59 100 mg QDAY CECE Administration Protocol Famotidine 20 mg 01/13/25 18:00 Famotidine 20 Mg Tablet PO 02/12/25 17:59 1800 CECE Heparin Sodium (Porcine) 5,000 unit 01/11/25 21:00 01/13/25 08:24 Heparin Sod Inj 5000 Unit/Ml Vial SC 01/25/25 20:59 5,000 unit Q12HR CECE Administration Lacosamide 100 mg 01/12/25 10:15 01/13/25 08:24 Lacosamide 50 Mg Tablet PO 02/11/25 10:14 100 mg BID CECE Administration Levetiracetam 1,250 mg 01/12/25 09:00 01/13/25 08:24 Levetiracetam Inj 100 Mg/Ml Vial 5ml IVP 02/11/25 08:59 1,250 mg Q12HR CECE Administration Lorazepam 2 mg 01/11/25 21:23 01/12/25 05:23 Lorazepam 2 Mg/Ml Vial IVP 2 mg Q5M PRN Administration breakthrough seizures Ondansetron HCl 4 mg 01/11/25 20:48 Ondansetron Inj 2 Mg/Ml Inj 2 Ml IVP 02/10/25 20:47 Q6H PRN NAUSEA OR VOMITING Protocol Plan Patient is a 54-year-old female well-known to neurology clinic, who was admitted for breakthrough seizures in the setting of poor compliance and possible VNS device battery run out. Breakthrough seizure In the setting of History of epilepsy VNS device out of battery Poor compliance - Patient is well-known to neurology practice, however has not followed up at the clinic in over 2 years. - Per 2019 EEG reevaluation, patient did have abnormal study. Patient had a VNS device placed, but has not been evaluated recently. - Per sister, patient does not get along with mother and insist on maintaining autonomy over her medications. Family noted that patient did run out of her medications on multiple occasions initially lacosamide and then Tegretol, which had to be refilled after a few days. Patient has been relatively seizure-free despite missing a couple doses in between, until now when she had a breakthrough seizure. - EEG from yesterday showed multifocal spike and wave activity consistent with seizures. Recommendations: - Advise to follow up on 19 January for VNS programming at [facility]. If out of battery, patient will need to follow-up with Dr. Dunaway in [place] for replacement. - DC on current management with Keppra 1250 mg twice daily + Vimpat 100 mg twice daily + carbamazepine 100 mg 3 times daily. - Family was informed that patient will need close observation for compliance, patient was also counseled extensively about the same. Other medical problems to be managed per primary team. Thank you for the consult. Neurology will continue to follow the case with you. Plan of care discussed with attending Neurologist Dr Drake, - Jamarcus Phan M.D. PGY3 Disclaimer: Minor errors in retirement administrator may be present as this note was dictated using voice recognition software. Attending Provider Attestation/Addendum I personally have seen and examined the patient at the bedside and agreed with the resident's findings, assessment and plan of care. Patient states seizure-free for more than 24 hours on current combination of medication. Advised the family and the patient regarding the importance of compliance to prevent recurrence. She is advised to follow-up with me at [facility] for VNS programming and referral for VNS battery replacement.
--- NOTE | 2025-01-13 16:23 | PC.NURSE ---
Pt's mother (caregiver) stated she did not have any Tregretol at home. Pharmacy contacted and they were able to refill medication supply a couple of days early. Pt and caregiver notified.
[2025-01-17 06:34] LABS: Levetiracetam (Keppra)* 31.0 mcg/mL (6.0-46.0)
== END 2025-01-13 16:15 | disposition home or self-care (01) | DRG 53 ==
LOC: SERX 19:43 → SERHOLD 21:08 → S2NX 23:35
PROVIDERS: Admitting Provider Internal Medicine; Emergency Provider Emergency Medicine; PCP Physician Assistant; Visit Provider Student in an Organized Health Care Education/Training Program
DX: G40.909 Epilepsy, unspecified, not intractable, without status epilepticus (principal); Z91.148 Patient's other noncompliance with medication regimen for other reason; E87.20 Acidosis, unspecified; Z79.899 Other long term (current) drug therapy
CPT/HCPCS: 36415; 51702; 70450; 71045; 80053; 80177; 81001; 82550; 82803; 83605; 83735; 84100; 84145; 84443; 84703; 85025; 92610; 93005; 94660; 95816; 96372; 96374; 96375; 96376; 97162; 99283; A4314; J1644; J1953; J2060; J3490; A9270